=== PATIENT | female | born 1935 | race Caucasian/White ===

== ENCOUNTER → 2018-02-05 10:16 | Outpatient (CLI) | payer MEDICARE | END | disposition home or self-care (01) | LOC: D.RAD 10:16 | DX: J44.9 Chronic obstructive pulmonary disease, unspecified (principal) ==

== ENCOUNTER 2018-10-15 11:47 | Inpatient (IN) | payer MEDICARE ==
[~2018-10-15] VITALS: Ht 152.4 cm; Wt 46.7 kg
[2018-10-15 12:49] LABS: BASOPHILS 0.4 % (0-2); EOSINOPHILS 0.2 % (0-7); HEMOGLOBIN 14.1 g/dL (12-16); IMMATURE GRANULOCYTES 0.1 % (0-5); LYMPHOCYTES 11.5 % (15-50); MCH 30.5 pg (26.0-34.0); MCHC 33.6 g/dL (31.0-37.0); MCV 90.7 fL (80.0-100.0); MEAN PLATELET VOLUME 11.8 fL (7.4-10.4); MONOCYTES 7.5 % (2-11); NEUTROPHILS 80.3 % (40-80); PLATELET COUNT 236 10x3/uL (130-400); RBC 4.63 10x6/uL (4.00-5.40); WBC 10.3 10x3/uL (4.8-10.8)
[2018-10-15 13:17] LABS: ALBUMIN 3.4 g/dL (3.4-5.0); ALKALINE PHOSPHATASE 44 U/L (46-116); ALT (SGPT) 27 U/L (10-68); BILIRUBIN - TOTAL 0.72 mg/dL (0.2-1.3); CALC OSMOLALITY 288 mosm/kg (275-300); CARBON DIOXIDE 25.8 mmol/L (21.0-32.0); CHLORIDE - SERUM 108 mmol/L (98-107); CREATININE - SERUM 0.7 mg/dL (0.6-1.3); GLUCOSE 118 mg/dL (74-106); POTASSIUM - SERUM 3.5 mmol/L (3.5-5.1); PROTEIN - SERUM 7.3 g/dL (6.4-8.2); SODIUM 145 mmol/L (136-145); UREA NITROGEN 11 mg/dL (7-18); eGFR NON AFRICAN AMERICAN 84 mL/min (90-120)
--- NOTE | 2018-10-15 16:52 | MORECARE ---
CASE MANAGEMENT DISCHARGE SUMMARY PATIENT: DIANNA CRUZ UNIT: [id number] ADM DATE: 10/15/18 AGE: 83 : 34 SEX: F ROOM/BED: D.2239 AUTHOR: MIREYADOC PHYSICIAN: REFERRING PHYSICIAN: MIKAYLA DOWNING MD DATE OF SERVICE: 10/15/18 Discharge Plan Patient Name: DIANNA CRUZ Facility: [facility]:[place] : 1935 Planned Disposition: Anticipated Discharge Date: Discharge Date: Expected LOS: Initial Reviewer: [email or web address] Initial Review Date: 10/15/2018 Generated: 10/15/18 5:52 pm DCP- Discharge Planning Updated by [email or web address]: Maricel De Guzman on 10/15/18 3:[address] CM met with patient, daughter, son regarding dc needs/plans. Patient request her daughter, Sherry and son Niels answer questions. Prior to yesterday, patient was independent with dressing, bathing, cooking, house work. Lives with son. Fell X2 yesterday due to LUE, LLE sudden weakness, did not seek treatment. PCP: Dr. Robles. Pharmacy: [facility]. Patient has 3 steps w/railing entering home. DME: None. HHS: None. Uses no community resources. Emergency Contact: Sherry Calles (Dtr) [phone], Niels Cruz (Son) H [phone], C [phone]. Patient is unkempt in appearance. Denies any difficulty swallowing. Patient will benefit REHAB prior to discharge and is in agreement with this. Her Insurance is [employer] and this will require prior authorization per Rehab. Informed family of different rehab facilities and process. Patient will also benefit use of a WALKER prior to discharge. CM will follow and assist with dc needs/plans PRN. Maricel De Guzman RN CM DCPIA - Discharge Planning Initial Assessment Updated by [email or web address]: Maricel De Guzman on 10/15/18 4:47 pm * Is the patient Alert and Oriented? Yes * How many steps to enter\exit or inside your home? 3 with mcpherson * PCP Dr. Robles * [facility] * Preadmission Environment Home with Family * ADLs Independent * Equipment None * Other Equipment NA * List name and contact numbers for known caregivers / representatives who currently or will assist patient after discharge: Sherry Calles (Dtr) [phone] Nielsmonisha Calles Jr (Son) H [phone] * Verbal permission to speak to the caregivers and representatives has been obtained from the patient. Yes * Community resources currently utilized None * Please name any agencies selected above. NA * Additional services required to return to the preadmission environment? Yes * Can the patient safely return to the preadmission environment? No * Has this patient been hospitalized within the prior 30 days at any hospital? No Patient Name: DIANNA CRUZ Page [id number] at 1652 All edits/amendments must be made on the electronic document DICTATION DATE: 10/15/181651 MANAGER DATABASE ADMINISTRATION: ELIZABETH 10/15/181651 RPT#: [id number] DC DATE: STATUS: ADM IN [facility] [address] [place] [address] END OF REPORT
[2018-10-15 17:13] VITALS: BP 140/55; BMI 20.1
[2018-10-15 20:20] VITALS: BP 160/53
[2018-10-15 23:33] VITALS: BP 160/70
[2018-10-16 04:05] VITALS: BP 161/75
[2018-10-16 08:51] VITALS: BP 174/62
[2018-10-16 10:41] LABS: BASOPHILS 0.4 % (0-2); EOSINOPHILS 0.1 % (0-7); HEMATOCRIT 39.7 % (36.0-48.0); HEMOGLOBIN 13.4 g/dL (12-16); IMMATURE GRANULOCYTES 0.2 % (0-5); LYMPHOCYTES 12.1 % (15-50); MCH 30.7 pg (26.0-34.0); MCHC 33.8 g/dL (31.0-37.0); MCV 91.1 fL (80.0-100.0); MEAN PLATELET VOLUME 11.8 fL (7.4-10.4); MONOCYTES 6.2 % (2-11); PLATELET COUNT 229 10x3/uL (130-400); RBC 4.36 10x6/uL (4.00-5.40); RDW 13.8 % (11.5-14.5)
[2018-10-16 10:53] LABS: CALC OSMOLALITY 285 mosm/kg (275-300); CALCIUM 8.8 mg/dL (8.5-10.1); CARBON DIOXIDE 26.3 mmol/L (21.0-32.0); CHLORIDE - SERUM 107 mmol/L (98-107); CREATININE - SERUM 0.7 mg/dL (0.6-1.3); GLUCOSE 127 mg/dL (74-106); POTASSIUM - SERUM 3.2 mmol/L (3.5-5.1); SODIUM 142 mmol/L (136-145); eGFR NON AFRICAN AMERICAN 84 mL/min (90-120)
[2018-10-16 10:58] LABS: UREA NITROGEN 16 mg/dL (7-18)
[2018-10-16 11:30] LABS: CHOL - HDL RATIO 2.3 ratio (2.3-4.1); LDL-HDL RATIO 1.1 ratio (1.5-3.5)
[2018-10-16 13:17] VITALS: Ht 152.4 cm; Wt 46.7 kg
[2018-10-16 13:37] VITALS: BP 171/61
[2018-10-16 17:45] VITALS: BP 132/66
[2018-10-16 20:00] VITALS: BP 146/54
[2018-10-17] VITALS: BP 135/65
[2018-10-17 03:00] VITALS: BP 142/58
[2018-10-17 06:39] LABS: BASOPHILS 0.6 % (0-2); EOSINOPHILS 0.6 % (0-7); HEMATOCRIT 38.3 % (36.0-48.0); HEMOGLOBIN 12.8 g/dL (12-16); IMMATURE GRANULOCYTES 0.1 % (0-5); LYMPHOCYTES 22.3 % (15-50); MCHC 33.4 g/dL (31.0-37.0); MCV 89.7 fL (80.0-100.0); MEAN PLATELET VOLUME 11.9 fL (7.4-10.4); MONOCYTES 8.6 % (2-11); NEUTROPHILS 67.8 % (40-80); PLATELET COUNT 228 10x3/uL (130-400); RBC 4.27 10x6/uL (4.00-5.40)
[2018-10-17 06:50] LABS: CALC OSMOLALITY 283 mosm/kg (275-300); CALCIUM 8.5 mg/dL (8.5-10.1); CARBON DIOXIDE 26.7 mmol/L (21.0-32.0); CHLORIDE - SERUM 106 mmol/L (98-107); CREATININE - SERUM 0.7 mg/dL (0.6-1.3); GLUCOSE 116 mg/dL (74-106); POTASSIUM - SERUM 3.4 mmol/L (3.5-5.1); SODIUM 141 mmol/L (136-145); UREA NITROGEN 17 mg/dL (7-18); eGFR NON AFRICAN AMERICAN 84 mL/min (90-120)
[2018-10-17 08:57] VITALS: BP 146/79
[2018-10-17 12:55] VITALS: BP 138/48
[2018-10-17 14:03] LABS: APPEARANCE HAZY (CLEAR); BILIRUBIN NEGATIVE (NEGATIVE); COLOR DK YELLOW (YELLOW); GLUCOSE NEGATIVE (NEGATIVE); KETONE NEGATIVE (NEGATIVE); NITRITE NEGATIVE (NEGATIVE); PROTEIN 1+ mg/dL (NEGATIVE); SPECIFIC GRAVITY 1.025 (1.005-1.020); UROBILINOGEN NORMAL (NORMAL)
[2018-10-17 14:04] LABS: BACTERIA MANY /hpf (NONE SEEN); CALCIUM OXALATE CRYSTALS 0-5 /hpf (NONE SEEN); EPITHELIAL CELLS 0-5 /hpf (0-5); MUCUS <1+ /lpf (NONE SEEN); RED CELLS - URINE 0-5 /hpf (0-5); WHITE CELLS - URINE 0-5 /hpf (0-5)
[2018-10-17 20:00] VITALS: BP 135/61
[2018-10-18] VITALS: BP 138/59
[2018-10-18 03:00] VITALS: BP 130/48
[2018-10-18 06:36] LABS: BASOPHILS 0.4 % (0-2); HEMATOCRIT 38.2 % (36.0-48.0); HEMOGLOBIN 12.4 g/dL (12-16); IMMATURE GRANULOCYTES 0.3 % (0-5); LYMPHOCYTES 20.3 % (15-50); MCH 29.7 pg (26.0-34.0); MCHC 32.5 g/dL (31.0-37.0); MCV 91.4 fL (80.0-100.0); MEAN PLATELET VOLUME 11.8 fL (7.4-10.4); PLATELET COUNT 243 10x3/uL (130-400); RBC 4.18 10x6/uL (4.00-5.40); RDW 14.1 % (11.5-14.5); WBC 7.8 10x3/uL (4.8-10.8)
[2018-10-18 06:52] LABS: CALC OSMOLALITY 289 mosm/kg (275-300); CALCIUM 8.6 mg/dL (8.5-10.1); CARBON DIOXIDE 27.7 mmol/L (21.0-32.0); CHLORIDE - SERUM 108 mmol/L (98-107); CREATININE - SERUM 0.6 mg/dL (0.6-1.3); GLUCOSE 119 mg/dL (74-106); POTASSIUM - SERUM 3.3 mmol/L (3.5-5.1); SODIUM 144 mmol/L (136-145); UREA NITROGEN 17 mg/dL (7-18); eGFR NON AFRICAN AMERICAN > 90 mL/min (90-120)
[2018-10-18 09:21] VITALS: BP 118/61
--- NOTE | 2018-10-18 15:19 | MORECARE ---
CASE MANAGEMENT DISCHARGE SUMMARY PATIENT: DIANNA CRUZ UNIT: [id number] ADM DATE: 10/15/18 AGE: 83 : 34 SEX: F ROOM/BED: D.2239 AUTHOR: MIREYA,DOC PHYSICIAN: REFERRING PHYSICIAN: MIKAYLA DOWNING MD DATE OF SERVICE: 10/18/18 Discharge Plan Patient Name: DIANNA CRUZ Facility: [facility]:[place] : 1935 Planned Disposition: Anticipated Discharge Date: Discharge Date: Expected LOS: Initial Reviewer: [email or web address] Initial Review Date: 10/15/2018 Generated: 10/18/18 4:19 pm Comments DCP- Discharge Planning Updated by [email or web address]: Carmita Villegas on 10/18/18 2:[address] [facility] AC[facility] REHAB REVIEWED PATIENT FOR ACUTE REHAB STAY 10/16/18. THE PATIENT HAS [employer] MANAGED CARE WHICH REQUIRES A PRECERT. PATIENT HAS QUALIFYING DIAGNOSIS. PHYSICAL THERAPY ASSESSMENT DONE 10/16/18 AND SHE CONTINUES THERAPY. OT EVALUATION DONE 10/17/18. REHAB TO F/U WITH INSURER TO OBTAIN PREAUTH. DCP- Discharge Planning Updated by [id number]: Maricel De Guzman on 10/15/18 3:[address] CM met with patient, daughter, son regarding dc needs/plans. Patient request her daughter, Sherry and son Niels answer questions. Prior to yesterday, patient was independent with dressing, bathing, cooking, house work. Lives with son. Fell X2 yesterday due to LUE, LLE sudden weakness, did not seek treatment. PCP: Dr. Robles. Pharmacy: [facility]. Patient has 3 steps w/railing entering home. DME: None. HHS: None. Uses no community resources. Emergency Contact: Sherry Calles (Dtr) [phone], Niels Jr Daniel (Son) H [phone], C [phone]. Patient is unkempt in appearance. Denies any difficulty swallowing. Patient will benefit REHAB prior to discharge and is in agreement with this. Her Insurance is [employer] and this will require prior authorization per Rehab. Informed family of different rehab facilities and process. Patient will also benefit use of a WALKER prior to discharge. CM will follow and assist with dc needs/plans PRN. Maricel De Guzman RN CM DCPIA - Discharge Planning Initial Assessment Updated by [id number]: Maricel De Guzman on 10/15/18 4:47 pm * Is the patient Alert and Oriented? Yes * How many steps to enter\exit or inside your home? 3 with mcpherson * PCP Dr. Robles * [facility] * Preadmission Environment Home with Family * ADLs Independent * Equipment None * Other Equipment NA * List name and contact numbers for known caregivers / representatives who currently or will assist patient after discharge: Sherry Calles (Dtr) [phone] Niels Calles Jr (Son) H [phone] * Verbal permission to speak to the caregivers and representatives has been obtained from the patient. Yes * Community resources currently utilized None * Please name any agencies selected above. NA * Additional services required to return to the preadmission environment? Yes * Can the patient safely return to the preadmission environment? No * Has this patient been hospitalized within the prior 30 days at any hospital? No Last DP export: 10/15/18 3:52 p Patient Name: DIANNA CRZU Page [id number] at 1519 All edits/amendments must be made on the electronic document DICTATION DATE: 10/18/181518 MEDICAL TRANSCRIPTION: ELIZABETH 10/18/181518 RPT#: [id number] DC DATE: STATUS: ADM IN [facility] [address] [place] [address] END OF REPORT
[2018-10-18 16:56] VITALS: BP 173/63
[2018-10-18 19:00] VITALS: BP 156/77
[2018-10-19] VITALS: BP 148/69
[2018-10-19 03:00] VITALS: BP 151/68
[2018-10-19 06:02] LABS: BASOPHILS 0.4 % (0-2); HEMATOCRIT 36.8 % (36.0-48.0); HEMOGLOBIN 11.9 g/dL (12-16); IMMATURE GRANULOCYTES 0.1 % (0-5); LYMPHOCYTES 22.4 % (15-50); MCH 29.5 pg (26.0-34.0); MCHC 32.3 g/dL (31.0-37.0); MCV 91.1 fL (80.0-100.0); MEAN PLATELET VOLUME 11.5 fL (7.4-10.4); MONOCYTES 10.3 % (2-11); NEUTROPHILS 65.8 % (40-80); PLATELET COUNT 235 10x3/uL (130-400); RBC 4.04 10x6/uL (4.00-5.40); RDW 13.9 % (11.5-14.5); WBC 6.9 10x3/uL (4.8-10.8)
[2018-10-19 06:17] LABS: CALC OSMOLALITY 290 mosm/kg (275-300); CALCIUM 8.5 mg/dL (8.5-10.1); CARBON DIOXIDE 28.3 mmol/L (21.0-32.0); CHLORIDE - SERUM 109 mmol/L (98-107); CREATININE - SERUM 0.6 mg/dL (0.6-1.3); GLUCOSE 118 mg/dL (74-106); POTASSIUM - SERUM 3.5 mmol/L (3.5-5.1); SODIUM 145 mmol/L (136-145); UREA NITROGEN 15 mg/dL (7-18); eGFR NON AFRICAN AMERICAN > 90 mL/min (90-120)
[2018-10-19 08:25] VITALS: BP 156/66
[2018-10-19 12:26] VITALS: BP 145/55
[2018-10-19 17:23] VITALS: BP 152/57
[2018-10-19 20:31] VITALS: BP 154/52
[2018-10-20 01:15] VITALS: BP 144/55
[2018-10-20 04:47] VITALS: BP 143/71
[2018-10-20 07:12] LABS: BASOPHILS 0.8 % (0-2); EOSINOPHILS 1.4 % (0-7); HEMATOCRIT 36.7 % (36.0-48.0); HEMOGLOBIN 12.3 g/dL (12-16); IMMATURE GRANULOCYTES 0.1 % (0-5); LYMPHOCYTES 25.9 % (15-50); MCH 30.5 pg (26.0-34.0); MCHC 33.5 g/dL (31.0-37.0); MCV 91.1 fL (80.0-100.0); MEAN PLATELET VOLUME 11.5 fL (7.4-10.4); MONOCYTES 7.9 % (2-11); NEUTROPHILS 63.9 % (40-80); PLATELET COUNT 242 10x3/uL (130-400); RBC 4.03 10x6/uL (4.00-5.40); RDW 13.7 % (11.5-14.5); WBC 7.1 10x3/uL (4.8-10.8)
[2018-10-20 07:27] LABS: CALC OSMOLALITY 283 mosm/kg (275-300); CALCIUM 8.4 mg/dL (8.5-10.1); CARBON DIOXIDE 26.2 mmol/L (21.0-32.0); CHLORIDE - SERUM 106 mmol/L (98-107); CREATININE - SERUM 0.6 mg/dL (0.6-1.3); GLUCOSE 117 mg/dL (74-106); POTASSIUM - SERUM 3.2 mmol/L (3.5-5.1); SODIUM 142 mmol/L (136-145); UREA NITROGEN 13 mg/dL (7-18); eGFR NON AFRICAN AMERICAN > 90 mL/min (90-120)
[2018-10-20 08:59] VITALS: BP 129/69
--- NOTE | 2018-10-20 10:23 | EC ---
PATIENT:DIANNA CRUZ DATE OF SERVICE: 10/15/18 SEX: F MEDICAL RECORD: [id number] DATE OF : 33 LOCATION:D.MS [address] AGE OF PATIENT: 83 ADMISSION DATE: 10/15/18 REFERRING PHYSICIAN: INTERPRETING PHYSICIAN: VAISHALI CAMARILLO MD ECHOCARDIOGRAM REPORT ECHO CHARGES 4 ECHO COMPLETE Date: 10/17/18 CLINICAL DIAGNOSIS: MURMUR ECHOCARDIOGRAPHIC MEASUREMENTS (adult normal given) AC root (d.<3.7cm) 2.9 cm LV Septum d (<1.2 cm> 1.7 cm Valve Excursion 0.5 cm LV Septum (systole) 1.8 cm Left Atria (s.<4.0cm> 2.4 cm LVPW d(<1.2cm) 0.7 cm RV (d.<2.3cm) 2.0 cm LVPW (sytole) 0.9 cm LV diastole(<5.6CM) 4.0 cm MV E-F(>70mm/sec) cm LV systole 3.5 cm LVOT Diameter 1.5 cm MV exc.(>10mm) cm Est.ejection fraction (50-75%) % DOPPLER: LVIT cm/sec A 95 cm/sec E 55 cm/sec LA cm/sec RVSP 22.0 mmHg LVOT 107 cm/sec AOP1/2T m/s Asc. Ao 313 cm/sec RVOT 104 cm/sec RA cm/sec PA 105 cm/sec AV Gradient Peak 39.2 mmHg AV Mean 31.5 mmHg AV Area 0.6 cm MV Gradient Peak 6.6 mmHg MV Mean 2.0 mmHg MV Area cm COMMENTS: Registered Safety Engineer: Carmine MERCADO Terrazzo Worker: 1 Dr. Cam[place]illo TAPE# PACS Pericardial Effusion N DATE OF SERVICE: 10/18/2018 PROCEDURE: Echocardiogram. FINDINGS: 1. Left ventricular chamber size is within normal limits. Left ventricular systolic function is normal. Overall ejection fraction estimated at 60%. 2. Left atrium, right atrium, and right ventricle chamber sizes are within normal limits. 3. Valvular structures have normal structure and motion. ECHOCARDIOGRAM REPORT [id number] DIANNA CRUZ 4. Doppler interrogation reveals mild aortic insufficiency. No other valvular insufficiency or stenosis and pulmonary systolic pressure is estimated at 22 mmHg. 5. No evidence of pericardial effusion or left ventricular thrombus. TRANSINT:[id number] Voice Confirmation ID: [id number] DOCUMENT ID: [id number] VAISHALI CAMARILLO MD at 1023 CC: [id number] DICTATION DATE: 10/18/18 1200 BULL CHAIN OPERATOR: 10/18/18 1344 ADM IN [facility] [address] [place] [address]
[2018-10-20 12:16] VITALS: BP 140/59
--- NOTE | 2018-10-20 12:25 | MORECARE ---
CASE MANAGEMENT DISCHARGE SUMMARY PATIENT: DIANNA CRUZ UNIT: [id number] ADM DATE: 10/15/18 AGE: 83 : 34 SEX: F ROOM/BED: D.2239 AUTHOR: MIREYA,DOC PHYSICIAN: REFERRING PHYSICIAN: MIKAYLA DOWNING MD DATE OF SERVICE: 10/20/18 Discharge Plan Patient Name: DIANNA CRUZ Facility: [facility]:[place] : 1935 Planned Disposition: Anticipated Discharge Date: Discharge Date: Expected LOS: Initial Reviewer: [email or web address] Initial Review Date: 10/15/2018 Generated: 10/20/18 1:25 pm DCP- Discharge Planning Updated by [email or web address]: Carmita Villegas on 10/18/18 2:[address] [facility] ACUTE REHAB REVIEWED PATIENT FOR ACUTE REHAB STAY 10/16/18. THE PATIENT HAS [employer] MANAGED CARE WHICH REQUIRES A PRECERT. PATIENT HAS QUALIFYING DIAGNOSIS. PHYSICAL THERAPY ASSESSMENT DONE 10/16/18 AND SHE CONTINUES THERAPY. OT EVALUATION DONE 10/17/18. REHAB TO F/U WITH INSURER TO OBTAIN PREAUTH. DCP- Discharge Planning Updated by [id number]: Maricel De Guzman on 10/15/18 3:[address] CM met with patient, daughter, son regarding dc needs/plans. Patient request her daughter, Sherry and son Niels answer questions. Prior to yesterday, patient was independent with dressing, bathing, cooking, house work. Lives with son. Fell X2 yesterday due to LUE, LLE sudden weakness, did not seek treatment. PCP: Dr. Robles. Pharmacy: [facility]. Patient has 3 steps w/railing entering home. DME: None. HHS: None. Uses no community resources. Emergency Contact: Sherry Calles (Dtr) [phone], Niels Jr Daniel (Son) H [phone], C [phone]. Patient is unkempt in appearance. Denies any difficulty swallowing. Patient will benefit REHAB prior to discharge and is in agreement with this. Her Insurance is [employer] and this will require prior authorization per Rehab. Informed family of different rehab facilities and process. Patient will also benefit use of a WALKER prior to discharge. CM will follow and assist with dc needs/plans PRN. Maricel De Guzman RN CM DCPIA - Discharge Planning Initial Assessment Updated by [email or web address]: Maricel De Guzman on 10/15/18 4:47 pm * Is the patient Alert and Oriented? Yes * How many steps to enter\exit or inside your home? 3 with mcpherson * PCP Dr. Robles * [facility] * Preadmission Environment Home with Family * ADLs Independent * Equipment None * Other Equipment NA * List name and contact numbers for known caregivers / representatives who currently or will assist patient after discharge: Sherry Calles (Dtr) [phone] Niels Calles Jr (Son) H [phone] * Verbal permission to speak to the caregivers and representatives has been obtained from the patient. Yes * Community resources currently utilized None * Please name any agencies selected above. NA * Additional services required to return to the preadmission environment? Yes * Can the patient safely return to the preadmission environment? No * Has this patient been hospitalized within the prior 30 days at any hospital? No External Providers External Provider: [facility] Next Contact Date: Service Request Date: Service Type: Resolution: Reviewer: Comments: Last DP export: 10/18/18 2:19 p Patient Name: DIANNA CRUZ Page [phone] at 1225 All edits/amendments must be made on the electronic document DICTATION DATE: 10/20/18 1225 RAIL CAR OPERATOR: ELIZABETH 10/20/18 1225 RPT#: [id number] DC DATE: STATUS: ADM IN [facility] [address] [place] [address] END OF REPORT
--- NOTE | 2018-10-20 12:41 | MORECARE ---
CASE MANAGEMENT DISCHARGE SUMMARY PATIENT: DIANNA CRUZ UNIT: [id number] ADM DATE: 10/15/18 AGE: 83 : 34 SEX: F ROOM/BED: D.2239 AUTHOR: MIREYA,DOC PHYSICIAN: REFERRING PHYSICIAN: MIKAYLA DOWNING MD DATE OF SERVICE: 10/20/18 Discharge Plan Patient Name: DIANNA CRUZ Facility: [facility]:[place] : 1935 Planned Disposition: Anticipated Discharge Date: Discharge Date: Expected LOS: Initial Reviewer: [email or web address] Initial Review Date: 10/15/2018 Generated: 10/20/18 1:41 pm Comments DCP- Discharge Planning Updated by [email or web address]: Colette Franco on 10/20/18 11:[address] Received a call from Mary with inpatient rehab that her insurance has denied inpatient rehab. I spoke with the patient and she does not want to appeal or go to a skilled facility. Patient states that she wants to go home. Patient does consent to home health, but states her daughter (Colette) knows the one to chose. I called Colette and she chose [facility]. I called [facility] and spoke with Atif and clinical faxed. I informed Atif that the daughter requests the nurse Aimee. I informed her daughter that I anticipate discharge today. CM will continue to follow and assist with discharge planning/needs. DCP- Discharge Planning Updated by [email or web address]: Carmita Villegas on 10/18/18 2:[address] [facility] AC[facility] REHAB REVIEWED PATIENT FOR ACUTE REHAB STAY 10/16/18. THE PATIENT HAS [employer] MANAGED CARE WHICH REQUIRES A PRECERT. PATIENT HAS QUALIFYING DIAGNOSIS. PHYSICAL THERAPY ASSESSMENT DONE 10/16/18 AND SHE CONTINUES THERAPY. OT EVALUATION DONE 10/17/18. REHAB TO F/U WITH INSURER TO OBTAIN PREAUTH. DCP- Discharge Planning Updated by [id number]: Maricel De Guzman on 10/15/18 3:[address] CM met with patient, daughter, son regarding dc needs/plans. Patient request her daughter, Sherry and son Niels answer questions. Prior to yesterday, patient was independent with dressing, bathing, cooking, house work. Lives with son. Fell X2 yesterday due to LUE, LLE sudden weakness, did not seek treatment. PCP: Dr. Robles. Pharmacy: [facility]. Patient has 3 steps w/railing entering home. DME: None. HHS: None. Uses no community resources. Emergency Contact: Sherry Calles (Dtr) [phone], Niels CruzJr (Son) H [phone], C [phone]. Patient is unkempt in appearance. Denies any difficulty swallowing. Patient will benefit REHAB prior to discharge and is in agreement with this. Her Insurance is [employer] and this will require prior authorization per Rehab. Informed family of different rehab facilities and process. Patient will also benefit use of a WALKER prior to discharge. CM will follow and assist with dc needs/plans PRN. Maricel De Guzman RN, CM DCPIA - Discharge Planning Initial Assessment Updated by [email or web address]: Maricel De Guzman on 10/15/18 4:47 pm * Is the patient Alert and Oriented? Yes * How many steps to enter\exit or inside your home? 3 with mcpherson * PCP Dr. Robles * [facility] * Preadmission Environment Home with Family * ADLs Independent * Equipment None * Other Equipment NA * List name and contact numbers for known caregivers / representatives who currently or will assist patient after discharge: Sherry Calles (Dtr) [phone] Niels Calles (Son) H [phone] * Verbal permission to speak to the caregivers and representatives has been obtained from the patient. Yes * Community resources currently utilized None * Please name any agencies selected above. NA * Additional services required to return to the preadmission environment? Yes * Can the patient safely return to the preadmission environment? No * Has this patient been hospitalized within the prior 30 days at any hospital? No Last DP export: 10/20/18 11:25 a Patient Name: DIANNA CRUZ Page 60811 at 1241 All edits/amendments must be made on the electronic document DICTATION DATE: 10/20/18 1240 TAPE CUTTING MACHINE OPERATOR: ELIZABETH 10/20/18 1240 RPT#: [id number] MD DATE: STATUS: ADM IN [facility] [address] [place] [address] END OF REPORT
--- NOTE | 2018-10-20 12:48 | MORECARE ---
CASE MANAGEMENT DISCHARGE SUMMARY PATIENT: DIANNA CRUZ UNIT: [id number] ADM DATE: 10/15/18 AGE: 83 : 34 SEX: F ROOM/BED: D.2239 AUTHOR: MIREYA,DOC PHYSICIAN: REFERRING PHYSICIAN: MIKAYLA DOWNING MD DATE OF SERVICE: 10/20/18 Discharge Plan Patient Name: DIANNA CRUZ Facility: [facility]:[place] : 1935 Planned Disposition: Anticipated Discharge Date: Discharge Date: Expected LOS: Initial Reviewer: [email or web address] Initial Review Date: 10/15/2018 Generated: 10/20/18 1:48 pm Comments DCP- Discharge Planning Updated by [email or web address]: Colette Franco on 10/20/18 11:[address] Received a call from Mary with inpatient rehab that her insurance has denied inpatient rehab. I spoke with the patient and she does not want to appeal or go to a skilled facility. Patient states that she wants to go home. Patient does consent to home health, but states her daughter (Colette) knows the one to chose. I called Colette and she chose [facility]. I called [facility] and spoke with Atif and clinical faxed. I informed Atif that the daughter requests the nurse Aimee. I informed her daughter that I anticipate discharge today. CM will continue to follow and assist with discharge planning/needs. DCP- Discharge Planning Updated by [email or web address]: Carmita Villegas on 10/18/18 2:[address] [facility] ACUTE REHAB REVIEWED PATIENT FOR ACUTE REHAB STAY 10/16/18. THE PATIENT HAS [employer] MANAGED CARE WHICH REQUIRES A PRECERT. PATIENT HAS QUALIFYING DIAGNOSIS. PHYSICAL THERAPY ASSESSMENT DONE 10/16/18 AND SHE CONTINUES THERAPY. OT EVALUATION DONE 10/17/18. REHAB TO F/U WITH INSURER TO OBTAIN PREAUTH. DCP- Discharge Planning Updated by [id number]: Maricel De Guzman on 10/15/18 3:[address] CM met with patient, daughter, son regarding dc needs/plans. Patient request her daughter, Sherry and son Niels answer questions. Prior to yesterday, patient was independent with dressing, bathing, cooking, house work. Lives with son. Fell X2 yesterday due to LUE, LLE sudden weakness, did not seek treatment. PCP: Dr. Robles. Pharmacy: [facility]. Patient has 3 steps w/railing entering home. DME: None. HHS: None. Uses no community resources. Emergency Contact: Sherry Calles (Dtr) [phone], Niels Jr Daniel (Son) H [phone], C [phone]. Patient is unkempt in appearance. Denies any difficulty swallowing. Patient will benefit REHAB prior to discharge and is in agreement with this. Her Insurance is [employer] and this will require prior authorization per Rehab. Informed family of different rehab facilities and process. Patient will also benefit use of a WALKER prior to discharge. CM will follow and assist with dc needs/plans PRN. Maricel De Guzman RN, CM DCPIA - Discharge Planning Initial Assessment Updated by [email or web address]: Maricel De Guzman on 10/15/18 4:47 pm * Is the patient Alert and Oriented? Yes * How many steps to enter\exit or inside your home? 3 with mcpherson * PCP Dr. Robles * [facility] * Preadmission Environment Home with Family * ADLs Independent * Equipment None * Other Equipment NA * List name and contact numbers for known caregivers / representatives who currently or will assist patient after discharge: Sherry Calles (Dtr) [phone] Niels Calles (Son) H [phone] * Verbal permission to speak to the caregivers and representatives has been obtained from the patient. Yes * Community resources currently utilized None * Please name any agencies selected above. NA * Additional services required to return to the preadmission environment? Yes * Can the patient safely return to the preadmission environment? No * Has this patient been hospitalized within the prior 30 days at any hospital? No External Providers [facility] Next Contact Date: Service Request Date: Service Type: Resolution: Reviewer: Comments: External Provider: [facility] Next Contact Date: Service Request Date: Service Type: Resolution: Reviewer: Comments: Last DP export: 10/20/18 11:41 a Patient Name: SHELBY CRUZE Page 68167 at 1248 All edits/amendments must be made on the electronic document DICTATION DATE: 10/20/181247 DENTAL BILLING SPECIALIST: ELIZABETH 10/20/181247 RPT#: [id number] DC DATE: STATUS: ADM IN [facility] [address] [place] [address] END OF REPORT
[2018-10-20] MEDS ORDERED: ASPIRIN81 MG PO (13:04)
[2018-10-20] MEDS ORDERED: LISINOPRIL10 MG PO (13:04)
[2018-10-20] MEDS ORDERED: LEVAQUIN750 MG PO (13:05)
[2018-10-20] MEDS ORDERED: Nicoderm [PBKC] TRANSDERM (13:05)
--- NOTE | 2018-10-20 14:34 | MORECARE ---
CASE MANAGEMENT DISCHARGE SUMMARY PATIENT: DIANNA CRUZ UNIT: [id number] ADM DATE: 10/15/18 AGE: 83 : 34 SEX: F ROOM/BED: D.2239 AUTHOR: MIREYA,DOC PHYSICIAN: REFERRING PHYSICIAN: MIKAYLA DOWNING MD DATE OF SERVICE: 10/20/18 Discharge Plan Patient Name: DIANNA CRUZ Facility: [facility]:[place] : 1935 Planned Disposition: Anticipated Discharge Date: Discharge Date: Expected LOS: Initial Reviewer: [email or web address] Initial Review Date: 10/15/2018 Generated: 10/20/18 3:34 pm Comments DCP- Discharge Planning Updated by [email or web address]: Colette Franco on 10/20/18 1:[address] Patient requesting a walker. I called [facility], they are not in network with insurance. I called [facility]. They state they will deliver to the hospital. Clinical faxed. She will go home today with [facility] home health services. DCP- Discharge Planning Updated by [email or web address]: Colette Franco on 10/20/18 11:[address] Received a call from Mary with inpatient rehab that her insurance has denied inpatient rehab. I spoke with the patient and she does not want to appeal or go to a skilled facility. Patient states that she wants to go home. Patient does consent to home health, but states her daughter (Colette) knows the one to chose. I called Colette and she chose [facility]. I called [facility] and spoke with Atif and clinical faxed. I informed Atif that the daughter requests the nurse Aimee. I informed her daughter that I anticipate discharge today. CM will continue to follow and assist with discharge planning/needs. DCP- Discharge Planning Updated by [email or web address]: Carmita Villegas on 10/18/18 2:[address] [facility] RE[facility] REVIEWED PATIENT FOR ACUTE REHAB STAY 10/16/18. THE PATIENT HAS [employer] MANAGED CARE WHICH REQUIRES A PRECERT. PATIENT HAS QUALIFYING DIAGNOSIS. PHYSICAL THERAPY ASSESSMENT DONE 10/16/18 AND SHE CONTINUES THERAPY. OT EVALUATION DONE 10/17/18. REHAB TO F/U WITH INSURER TO OBTAIN PREAUTH. DCP- Discharge Planning Updated by [email or web address]: Maricel De Guzman on 10/15/18 3:[address] CM met with patient, daughter, son regarding dc needs/plans. Patient request her daughter, Sherry and son Niels answer questions. Prior to yesterday, patient was independent with dressing, bathing, cooking, house work. Lives with son. Fell X2 yesterday due to LUE, LLE sudden weakness, did not seek treatment. PCP: Dr. Robles. Pharmacy: [facility]. Patient has 3 steps w/railing entering home. DME: None. HHS: None. Uses no community resources. Emergency Contact: Sherry Marli (Dtr) [phone], Nielsmonisha Cruz Jr (Son) H [phone], C [phone]. Patient is unkempt in appearance. Denies any difficulty swallowing. Patient will benefit REHAB prior to discharge and is in agreement with this. Her Insurance is [employer] and this will require prior authorization per Rehab. Informed family of different rehab facilities and process. Patient will also benefit use of a WALKER prior to discharge. CM will follow and assist with dc needs/plans PRN. Maricel De Guzman RN CM DCPIA - Discharge Planning Initial Assessment Updated by [email or web address]: Maricel De Guzman on 10/15/18 4:47 pm * Is the patient Alert and Oriented? Yes * How many steps to enter\exit or inside your home? 3 with mcpherson * PCP Dr. Robles * Pharmacy [facility] * Preadmission Environment Home with Family * ADLs Independent * Equipment None * Other Equipment NA * List name and contact numbers for known caregivers / representatives who currently or will assist patient after discharge: Sherry Calles (Dtr) [phone] Niels Calles Jr (Son) [phone] * Verbal permission to speak to the caregivers and representatives has been obtained from the patient. Yes * Community resources currently utilized None * Please name any agencies selected above. NA * Additional services required to return to the preadmission environment? Yes * Can the patient safely return to the preadmission environment? No * Has this patient been hospitalized within the prior 30 days at any hospital? No Last DP export: 10/20/18 11:48 a Patient Name: DIANNA CRUZ Page [id number] at 1434 All edits/amendments must be made on the electronic document DICTATION DATE: 10/20/181433 PRECAST CONCRETE IRONWORKER: ELIZABETH 10/20/181433 RPT#: [id number] DC DATE: STATUS: ADM IN [facility] [address] [place] [address] END OF REPORT
--- NOTE | 2018-10-20 14:49 | MORECARE ---
CASE MANAGEMENT DISCHARGE SUMMARY PATIENT: DIANNA CRUZ UNIT: [id number] ADM DATE: 10/15/18 AGE: 83 : 34 SEX: F ROOM/BED: D.2239 AUTHOR: MIREYA,DOC PHYSICIAN: REFERRING PHYSICIAN: MIKAYLA DOWNING MD DATE OF SERVICE: 10/20/18 Discharge Plan Patient Name: DIANNA CRUZ Facility: [facility]:[place] : 1935 Planned Disposition: Anticipated Discharge Date: Discharge Date: Expected LOS: Initial Reviewer: [email or web address] Initial Review Date: 10/15/2018 Generated: 10/20/18 3:49 pm Comments DCP- Discharge Planning Updated by [email or web address]: Colette Franco on 10/20/18 1:[address] Spoke with Brian at [facility] and confirmed they will see her on discharge for PT/OT/med box management/nursing O&A. CM will continue to follow and assist with discharge planning/needs. DCP- Discharge Planning Updated by [email or web address]: Colette Franco on 10/20/18 1:[address] Patient requesting a walker. I called [facility], they are not in network with insurance. I called [facility]. They state they will deliver to the hospital. Clinical faxed. She will go home today with [facility] home health services. DCP- Discharge Planning Updated by [email or web address]: Colette Franco on 10/20/18 11:[address] Received a call from Mary with inpatient rehab that her insurance has denied inpatient rehab. I spoke with the patient and she does not want to appeal or go to a skilled facility. Patient states that she wants to go home. Patient does consent to home health, but states her daughter (Colette) knows the one to chose. I called Colette and she chose [facility]. I called [facility] and spoke with Atif and clinical faxed. I informed Atif that the daughter requests the nurse Aimee. I informed her daughter that I anticipate discharge today. CM will continue to follow and assist with discharge planning/needs. DCP- Discharge Planning Updated by [email or web address]: Carmita Villegas on 10/18/18 2:[address] [facility] ACUTE REH[facility] REVIEWED PATIENT FOR ACUTE REHAB STAY 10/16/18. THE PATIENT HAS [employer] MANAGED CARE WHICH REQUIRES A PRECERT. PATIENT HAS QUALIFYING DIAGNOSIS. PHYSICAL THERAPY ASSESSMENT DONE 10/16/18 AND SHE CONTINUES THERAPY. OT EVALUATION DONE 10/17/18. REHAB TO F/U WITH INSURER TO OBTAIN PREAUTH. DCP- Discharge Planning Updated by [email or web address]: Maricel Gab on 10/15/18 3:[address] CM met with patient, daughter, son regarding dc needs/plans. Patient request her daughter, Sherry and son Niels answer questions. Prior to yesterday, patient was independent with dressing, bathing, cooking, house work. Lives with son. Fell X2 yesterday due to LUE, LLE sudden weakness, did not seek treatment. PCP: Dr. Robles. Pharmacy: [facility]. Patient has 3 steps w/railing entering home. DME: None. HHS: None. Uses no community resources. Emergency Contact: Sherry Calles (Dtr) [phone], Niels Cruz Jr (Son) [phone], C [phone]. Patient is unkempt in appearance. Denies any difficulty swallowing. Patient will benefit REHAB prior to discharge and is in agreement with this. Her Insurance is [employer] and this will require prior authorization per Rehab. Informed family of different rehab facilities and process. Patient will also benefit use of a WALKER prior to discharge. CM will follow and assist with dc needs/plans PRN. Maricel De Guzman RN CM DCPIA - Discharge Planning Initial Assessment Updated by [email or web address]: Maricel Gab on 10/15/18 4:47 pm * Is the patient Alert and Oriented? Yes * How many steps to enter\exit or inside your home? 3 with mcpherson * PCP Dr. Robles * Pharmacy [facility] * Preadmission Environment Home with Family * ADLs Independent * Equipment None * Other Equipment NA * List name and contact numbers for known caregivers / representatives who currently or will assist patient after discharge: Sherry Calles (Dtr) [phone] Niels Calles Jr (Son) H [phone] * Verbal permission to speak to the caregivers and representatives has been obtained from the patient. Yes * Community resources currently utilized None * Please name any agencies selected above. NA * Additional services required to return to the preadmission environment? Yes * Can the patient safely return to the preadmission environment? No * Has this patient been hospitalized within the prior 30 days at any hospital? No Last DP export: 10/20/18 1:34 p Patient Name: DIANNA CRUZ Page [id number] at 1449 All edits/amendments must be made on the electronic document DICTATION DATE: 10/20/181447 SUPERVISOR BEET END: DM 10/20/181447 RPT#: [id number] DC DATE: STATUS: ADM IN [facility] [address] [place] [address] END OF REPORT
--- NOTE | 2018-10-22 11:09 | MORECARE ---
CASE MANAGEMENT DISCHARGE SUMMARY PATIENT: DIANNA CRUZ UNIT: [id number] ADM DATE: 10/15/18 AGE: 83 : 34 SEX: F ROOM/BED: D.2239 AUTHOR: MIREYA,DOC PHYSICIAN: REFERRING PHYSICIAN: MIKAYLA DOWNING MD DATE OF SERVICE: 10/22/18 Discharge Plan Patient Name: DIANNA CRUZ Facility: [facility]:[place] : 1935 Planned Disposition: Anticipated Discharge Date: Discharge Date: 10/20/2018 Expected LOS: 0 Initial Reviewer: [email or web address] Initial Review Date: 10/15/2018 Generated: 10/22/18 12:09 pm Comments DCP- Discharge Planning Updated by [email or web address]: Colette Franco on 10/20/18 1:[address] Spoke with Brian at [facility] and confirmed they will see her on discharge for PT/OT/med box management/nursing O&A. CM will continue to follow and assist with discharge planning/needs. DCP- Discharge Planning Updated by [id number]: Colette Franco on 10/20/18 1:[address] Patient requesting a walker. I called [facility], they are not in network with insurance. I called [facility]. They state they will deliver to the hospital. Clinical faxed. She will go home today with [facility] home health services. DCP- Discharge Planning Updated by [email or web address]: Colette Franco on 10/20/18 11:[address] Received a call from Mary with inpatient rehab that her insurance has denied inpatient rehab. I spoke with the patient and she does not want to appeal or go to a skilled facility. Patient states that she wants to go home. Patient does consent to home health, but states her daughter (Colette) knows the one to chose. I called Colette and she chose [facility]. I called [facility] and spoke with Atif and clinical faxed. I informed Atif that the daughter requests the nurse Aimee. I informed her daughter that I anticipate discharge today. CM will continue to follow and assist with discharge planning/needs. DCP- Discharge Planning Updated by [id number]: Carmita Villegas on 10/18/18 2:[address] [facility] REHAB REVIEWED PATIENT FOR ACUTE REHAB STAY 10/16/18. THE PATIENT HAS [employer] MANAGED CARE WHICH REQUIRES A PRECERT. PATIENT HAS QUALIFYING DIAGNOSIS. PHYSICAL THERAPY ASSESSMENT DONE 10/16/18 AND SHE CONTINUES THERAPY. OT EVALUATION DONE 10/17/18. REHAB TO F/U WITH INSURER TO OBTAIN PREAUTH. DCP- Discharge Planning Updated by [id number]: Maricel Gab on 10/15/18 3:[address] CM met with patient, daughter, son regarding dc needs/plans. Patient request her daughter, Sherry and son Niels answer questions. Prior to yesterday, patient was independent with dressing, bathing, cooking, house work. Lives with son. Fell X2 yesterday due to LUE, LLE sudden weakness, did not seek treatment. PCP: Dr. Robles. Pharmacy: [facility]. Patient has 3 steps w/railing entering home. DME: None. HHS: None. Uses no community resources. Emergency Contact: Sherry Calles (Dtr) [phone], Niels Cruz Jr (Son) H [phone], C [phone]. Patient is unkempt in appearance. Denies any difficulty swallowing. Patient will benefit REHAB prior to discharge and is in agreement with this. Her Insurance is [employer] and this will require prior authorization per Rehab. Informed family of different rehab facilities and process. Patient will also benefit use of a WALKER prior to discharge. CM will follow and assist with dc needs/plans PRN. Maricel De Guzman RN CM DCPIA - Discharge Planning Initial Assessment Updated by [email or web address]: Maricel De Guzman on 10/15/18 4:47 pm * Is the patient Alert and Oriented? Yes * How many steps to enter\exit or inside your home? 3 with mcpherson * PCP Dr. Robles * Pharmacy [facility] * Preadmission Environment Home with Family * ADLs Independent * Equipment None * Other Equipment NA * List name and contact numbers for known caregivers / representatives who currently or will assist patient after discharge: Sherry Calles (Dtr) [phone] Niels Calles Jr (Son) H [phone] * Verbal permission to speak to the caregivers and representatives has been obtained from the patient. Yes * Community resources currently utilized None * Please name any agencies selected above. NA * Additional services required to return to the preadmission environment? Yes * Can the patient safely return to the preadmission environment? No * Has this patient been hospitalized within the prior 30 days at any hospital? No Coverage Notice Reviewer: [email or web address] Guero Colette Franco Notice Issued Date-Time: 10/20/2018 14:54 Notice Type: IM Discharge Notice Notice Delivered To: Patient Relationship to Patient: Self Dental Hygiene Teacher Name: Delivery Method: HAND - Hand Delivered [place] Days: Prior Verbal Notification: Recipient Understood Notice: Yes Recipient Signature: Yes Med Rec Note Co-signed by Attending: Coverage Notice Comment: IMM explained, signed, copy given, original placed on MR Last DP export: 10/20/18 1:49 p Patient Name: DIANNA CRUZ Page [id number] at 1109 All edits/amendments must be made on the electronic document DICTATION DATE: 10/22/181107 COTTON BAG SEWER: ELIZABETH 10/22/181107 RPT#: [id number] DC DATE:10/20/18 STATUS: DIS IN [facility] [address] [place] [address] END OF REPORT
== END 2018-10-20 16:47 | disposition home or self-care (01) | DRG 65 ==
LOC: D.ER 11:47 → D.EDHOLD 15:26 → D.MS 15:26
PROVIDERS: Emergency Medicine; ADMIT Internal Medicine Nephrology
DX: I63.9 Cerebral infarction, unspecified (principal); G81.94 Hemiplegia, unspecified affecting left nondominant side; F17.213 Nicotine dependence, cigarettes, with withdrawal; Z72.0 Tobacco use; E87.6 Hypokalemia; I10 Essential (primary) hypertension

== ENCOUNTER 2019-02-14 21:28 | Inpatient (IN) | payer MEDICARE ==
--- NOTE | ~2019-02-14 | HEMODYNAMI ---
PATIENT:DIANNA CRUZ MEDICAL RECORD: [id number] : 33 LOCATION:[facility] D.2 ADMISSION DATE: 02/18/19 Generatedon:02/19/201915:32 Patient name: DIANNA CRUZ Patient #: [id number] SSN: D OB: 1935 Date of study: 02/19/2019 Page: Of Hemodynamic Procedure Report Patient Data Patient Demographics Procedure consent was obtained First Name: DIANNA Gender: Female Last Name: ANTHONY : 1935 Patient #: [id number] Age: 83 year(s) Race: Unknown Additional ID: [id number] Contact details Address: [address] [place] [address] circle State: [place] City: [facility] Zip code: [address] Past Medical History Allergies Allergen Reaction Date Comments Reported Other allergy 02/19/2019 FLU SHOT, PCN, LATEX, Admission Admission Data Admission Date: 02/18/2019 Admission Time: 17:06 Room #: D.2122 Weight (lbs.): 110.23 Weight (kg.): 50 Lab Results Lab Result Date: 02/19/2019 Lab Result Time: 0:00 Biochemistry Name Units Result Min Max BUN mg/dl 13 --(--*-)-- 7 18 Creatinine mg/dl 0.6 --(*---)-- 0.6 1.3 CBC Name Units Result Min Max Hemoglobin g/dl 11.4 *-(----)-- 13.5 17.5 Procedure Procedure Types Cath Procedure Diagnostic Procedure LHC LHC w/Coronaries Procedure Description Procedure Date Procedure Date: 02/19/2019 Procedure Start Time: 15:22 Procedure End Time: 15:31 Procedure Staff Name Function Tom Camarillo MD Performing Physician Roula Leggett RN Nurse Samara Moy RT Scrub hCip Madera RT Monitor Procedure Data Cath Procedure Fluoroscopy Diagnostic fluoroscopy Total fluoroscopy Time: 2.7 time: 2.7 min min Diagnostic fluoroscopy Total fluoroscopy dose: 204 dose: 204 mGy mGy Contrast Material Contrast Material Type Amount (ml) Isovue 300 33 Entry Location Entry Primary Successful Side Size Upsize Upsize Entry Closure Romero ccessful Closure Location (Fr) 1 (Fr) 2 (Fr) Remarks Device Remarks Radial Right 6 Fr Mechanical artery Short Compression Estimated blood loss: 5 ml Diagnostic catheters Device Type Used For End Catheter Placement DIAGNOSTIC Newton 110cm 5 Procedure Fr catheter ([id number]) Procedure Complications No complications Procedure Medications Medication Administration Route Dosage 0.9% NaCl I.V. 100 ml/hr Oxygen etCO2 Nasal cannula 2 l/min Lidocaine 2% added to field 20 Heparin Flush Bag added to field 2 bags (1000units/500ml NS) Radial Cocktail added to field 1 syringe (Verapamil 2mg/Nitro 400mcg/Heparin 1500units) Versed I.V. 1 mg Fentanyl I.V. 50 mcg Versed I.V. 1 mg Fentanyl I.V. 50 mcg Versed I.V. 0.5 mg Hemodynamics Rest HGB: 11.4 (g/dl) Heart Rate: 80 (bpm) Pressure Samples Time Site Value (mmHg) Purpose Heart Use Rate(bpm) 15:26 LV 139/9,19 Snapshot 81 15:26 LV 126/8,9 Snapshot 75 15:26 AO 82/39(58) Pullback 76 Gradients Valve Time Site Site 2 Mean SEP/DFP Peak To Heart Use 1 (mmHg) (sec/min) Peak Rate (mmHg) (bpm) Aortic 15:26 LV AO 28 21 76 82/39(58) Calculations Valve P-P Mean Valve Index Valve Source Name Gradient Area Flow (cm2) Aortic 28 28 Snapshots Pre Cath Intra NCS Post Cath Vital Signs Time Heart Resp SPO2 etCO2 NIBP (mmHg) Rhythm Pain Sedation Rate (ipm) (%) (mmHg) Status Level (bpm) 14:59:48 80 16 98 30.8 183/72(125) NSR 0 (11) 10(A) , No pain 15:04:16 78 17 97 27 181/68(134) NSR 0 (11) 10(A) , No pain 15:08:40 77 13 97 0 161/69(123) NSR 0 (11) 10(A) , No pain 15:13:02 75 15 97 29.3 151/62(118) NSR 0 (11) 10(A) , No pain 15:17:23 72 14 96 25.5 137/55(101) NSR 0 (11) 10(A) , No pain 15:21:39 72 15 96 26.3 142/53(100) NSR 0 (11) 9(A) , No pain 15:25:59 85 19 96 32.3 94/49(71) NSR 0 (11) 9(A) , No pain 15:30:01 75 16 96 31.5 106/50(76) NSR 0 (11) 10(A) , No pain Medications Time Medication Route Dose Verified Delivered Reason Notes E ffectiveness by by 15:01:30 0.9% NaCl I.V. 100 Tom Roula used for ml/hr Marquise Leggett geodesist 15:01:36 Oxygen etCO2 2 l/min Tom Roula used for Nasal Marquise Leggett procedure cannula RN 15:01:41 Lidocaine 2% added 20ml Tom Tom for local to vial Marquise Camarillo MD anesthetic field 15:01:45 Heparin Flush added 2 bags Tom Tom used for Bag to Marquise Camarillo MD procedure (1000units/500ml field NS) 15:01:55 Radial Cocktail added 1 Tom Tom used for (Verapamil to syringe Marquise Camarillo MD procedure 2mg/Nitro field 400mcg/Heparin 1500units) 15:19:59 Versed I.V. 1 mg Tom Santos for Marquise Camarillo MD sedation 15:20:07 Fentanyl I.V. 50 mcg Tom Santos for Marquise Camarillo MD sedation 15:23:05 Versed I.V. 1 mg Tom Santos for Marquise Camarillo MD sedation 15:23:09 Fentanyl I.V. 50 mcg Tom Santos for Marquise Camarillo MD sedation 15:26:56 Versed I.V. 0.5 mg Tom Santos for Marquise Camarillo MD sedation Procedure Log Time Note 14:26:28 Brian Garduno RT(R) sent for patient. Start room use. 14:26:30 Time tracking: Regular hours (M-F 7:00 - 5:00) 14:26:34 Plan of Care:Hemodynamics will remain stable., Cardiac rhythm will remain stable., Comfort level will be maintained., Respiratory function will remain adequate., Patient/ family verbilizes understanding of procedure., Procedure tolerated without complication., Recovers from procedure without complications.. 14:44:01 Signed procedure consent form obtained from patient. 14:44:03 Diagnostic Cath status Urgent 14:44:13 H&P Date Dictated: 02/17/2019 Within 30 days and on chart.. 14:45:07 Patient allergic to Other allergyFLU SHOT, PCN, LATEX, 14:52:56 Patient received from Med/Surg to CCL 2 Alert and oriented. Tansferred to table in Supine position. 14:52:57 Warm blankets applied, and shelia hugger turned on for patient comfort. 14:52:58 Correct patient and procedure confirmed by team. 14:52:58 ECG and BP/O2 sat monitors applied to patient. 14:58:36 Vital chart was started 15:01:08 Baseline sample Acquired. 15:01:12 Rhythm: sinus rhythm 15:01:13 Full Disclosure recording started 15:01:14 Pre-procedure instructions explained to patient. 15:01:14 Pre-op teaching completed and patient verbalized understanding. 15:01:16 Family in patients room. 15:01:17 Patient NPO since Midnight. 15:01:19 Is patient on blood thinner?No 15:01:20 Patient diabetic? No. 15:01:27 Patient not . Patient is over age 55. 15:01:29 Previous problem with sedation/anesthesia? No ? 15:01:30 0.9% NaCl 100 ml/hr I.V. was administered by Roula Leggett RN; used for procedure; 15:01:33 Snore? Yes 15:01:34 Sleep apnea? No 15:01:35 Deviated septum? No 15:01:35 Opens mouth fully? Yes 15:01:36 Oxygen 2 l/min etCO2 Nasal cannula was administered by Roula Leggett RN; used for procedure; 15:01:36 Sticks out tongue? Yes 15:01:40 Airway obstruction? Yes COPD 15:01:41 Lidocaine 2% 20ml vial added to field was administered by Tom Camarillo MD; for local anesthetic; 15:01:43 Dentures? No OUT 15:01:45 Heparin Flush Bag (1000units/500ml NS) 2 bags added to field was administered by Tom Camarillo MD; used for procedure; 15:01:46 Modified Jermeie's test Ulnar < 7 seconds 15:01:48 Patient pain scale 0/10 ?. 15:01:55 Radial Cocktail (Verapamil 2mg/Nitro 400mcg/Heparin 1500units) 1 syringe added to field was administered by Tom Camarillo MD; used for procedure; 15::55 IV patent on arrival in left hand with 0.9% NaCl at KVO. 15::58 Lab results completed and on chart. 15:02:01 Right Radial & Right Groin area was prepped with chlora-prep and draped in sterile fashion 15:02:02 Alarms reviewed by R. N. 15:02:02 Sharps counted by scrub and verified by R.N. 15:06:15 Physician paged 15:09:03 Use device set Radial Dx or PCI 15:09:05 Tegaderm 4 x 4 (1626W) opened to sterile field. 15:09:06 ACIST Manifold (09455) opened to sterile field. 15:09:07 ACIST Hand Control (19251) opened to sterile field. 15:09:08 ACIST Syringe (31168) opened to sterile field. 15:09:08 Medline Cath Pack ([id number]) opened to sterile field. 15:09:09 Bag Decanter (2002S) opened to sterile field. 15:09:09 DIAGNOSTIC WIRE .035 260cm J wire (968505) opened to sterile field. 15:09:10 MBrace Wrist Support ([id number]) opened to sterile field. 15:09:12 SHEATH 6FR Slender (41-9509) opened to sterile field. 15:09:37 Patient Weight : 110.23 lbs 15::58 Lab Result : BUN 13 mg/dl 15::58 Lab Result : Hemoglobin 11.4 g/dl 15::58 Lab Result : Creatinine 0.6 mg/dl 15::35 Zero performed for pressure channel P1 15:19:42 Physician arrived 15::42 --------ALL STOP TIME OUT------ 15:19:43 Final Timeout: patient, procedure, and site verified with staff and physician. All members of the team are in agreement. 15:19:46 Right Radial & Right Groin site verified by team. 15::59 Versed 1 mg I.V. was administered by Tom Camarillo MD; for sedation; 15:: Fentanyl 50 mcg I.V. was administered by Tom Camarillo MD; for sedation; :: Maximum allowable Isovue 300 dose 300ml. Physician notified. (300ml for normal creatinines. For patients with creatinine of 1.7 or higher multiply weight(kg) x 5 divided by creatinine.) 15:: Fire Safety Assessment: A--An alcohol-based skin anteseptic being used preoperatively., C--Open oxygen or nitrous oxide is being used., D--An ESU, laser, or fiber-optic light is being used. 15:: Physical assessment completed. ASA score P 2 - A patient with mild systemic disease as per Tom Camarillo MD. 15::33 Sedation plan: IV Moderate Sedation Medication:Versed, Fentanyl 15::20 Procedure started. 15:: Local anesthetic to right radial artery with Lidocaine 2% by Tom Camarillo MD.INITIAL ACCESS ONLY 15::31 A 6 Fr Short sheath was inserted into the Right Radial artery 15::05 Versed 1 mg I.V. was administered by Tom Camarillo MD; for sedation; :: Fentanyl 50 mcg I.V. was administered by Tom Camarillo MD; for sedation; ::19 A DIAGNOSTIC Newton 110cm 5 Fr catheter ([id number]) was advanced over the wire and used for Procedure. 15:: LV gram done using BAXTER ::24 Injector settings: Ml/sec: 5, Volume: 15, 15::56 Versed 0.5 mg I.V. was administered by Tom Camarillo MD; for sedation; 15::57 LV hemodynamics recorded. 15:27:02 EF : 60 % 15::04 LCA angiography performed. 15::20 RCA angiography performed. 15::11 Catheter removed. 15:29:15 TR BAND Standard ([id number]) opened to sterile field. 15:29:21 Sheath removed intact; hemostasis achieved with Mechanical Compression to the Right Radial artery. 15::23 Procedure ended.(Physican Out) 15:29:48 Fluoroscopy time 02.70 minutes. 15:29:51 Fluoroscopy dose: 204 mGy 15:29:51 Flurop Dose total: 204 15:29:54 Contrast amount:Isovue 300 33ml. 15:29:55 Sharps counted by scrub and verified by R.N. 15:29:58 Insertion/operative site no bleeding no hematoma. 15:30:44 Post right radial artery:stable, soft, clean and dry 15:30:45 Post Procedure Pulses reassessed and unchanged 15:30:48 Post-procedure physical assessment completed. ASA score P 2 - A patient with mild systemic disease as per Tom Camarillo MD. 15:30:51 Post procedure rhythm: unchanged. 15:30:53 Estimated blood loss: 5 ml 15:30:54 Post procedure instruction explained to patient.Patient verbalizes understanding. 15:30:54 Patient needs reinforcement of post procedure teaching. 15:31:15 Procedure and supply charges have been captured, reviewed, submitted and are correct. 15:31:18 Procedure Complication : No complications 15:31:19 Vital chart was stopped 15:31:20 See physician's report for complete and final results. 15:31:22 Report given to PCU. 15:31:24 Patient transfered to PCU with Stretcher. 15:31:26 Procedure ended. 15:31:26 Full Disclosure recording stopped 15:31:31 End room use (Document Last) Device Usage Item Name Manufacture Quantity Catalog Hospital Part Current Minimal Lot# / Number Charge Number Stock Stock Serial# Code Tegaderm 4 3M 1 1626W [id number] 166958 364304 5 x 4 (1626W) ACIST Acist 1 03640 208462 569970 660832 5 Manifold Medical (66430) Systems Inc ACIST Hand Acist 1 03178 723371 966096 572618 5 Control Medical (94598) Systems Inc ACIST Acist 1 90686 651337 773310 358829 20 Syringe Medical (74019) Systems Inc Medline Medline 1 [id number] 227865 02984 100563 5 Cath Pack ([id number]) Bag Microtek 1 2001S 391785 33356 129319 5 Decanter Medical Inc. () DIAGNOSTIC St Jarred 1 626997 043405 736822 521987 30 WIRE .035 260cm J wire (897031) MBrace Advanced 1 140-0250-00 763610 81842 281981 5 Wrist Vascular Support Dynamics ([id number]) SHEATH 6FR Terumo 1 [id number] 614737 800998 284605 5 Slender (08-1750) DIAGNOSTIC Terumo 1 40-9878 730035 469657 919344 5 Newton 110cm 5 Fr catheter (665832) TR BAND Terumo 1 [id number] 365173 348600 328230 40 Standard ([id number]) Signature Audit [place] Stage Time Signature Unsigned Intra-Procedure 02/19/2019 Chip Madera 3:32:02 PM RT(R) Signatures Monitor : Chip Madera RT Signature : Date : Time : [id number] [place] [address]
[~2019-02-14 21:28] MED LIST: ASPIRIN81 MG PO; LEVAQUIN750 MG PO; LISINOPRIL10 MG PO; Nicoderm [PBKC] TRANSDERM
[2019-02-14] MEDS ORDERED: LISINOPRIL20 MG PO (21:33)
[2019-02-14 22:01] LABS: APPEARANCE CLEAR (CLEAR); COLOR YELLOW (YELLOW); GLUCOSE NEGATIVE (NEGATIVE); KETONE SMALL mg/dL (NEGATIVE); NITRITE NEGATIVE (NEGATIVE); PROTEIN 1+ mg/dL (NEGATIVE); SPECIFIC GRAVITY 1.025 (1.005-1.020)
[2019-02-14 22:02] LABS: BILIRUBIN NEGATIVE (NEGATIVE); UROBILINOGEN NORMAL (NORMAL)
[2019-02-14 22:03] LABS: BACTERIA MODERATE /hpf (NONE SEEN); EPITHELIAL CELLS 0-5 /hpf (0-5); MUCUS <1+ /lpf (NONE SEEN); RED CELLS - URINE 0-5 /hpf (0-5); WHITE CELLS - URINE 0-5 /hpf (0-5)
[2019-02-14 22:09] LABS: BASOPHILS 0.4 % (0-2); EOSINOPHILS 0.1 % (0-7); HEMATOCRIT 36.3 % (36.0-48.0); HEMOGLOBIN 11.9 g/dL (12-16); IMMATURE GRANULOCYTES 0.1 % (0-5); LYMPHOCYTES 5.8 % (15-50); MCH 29.3 pg (26.0-34.0); MCHC 32.8 g/dL (31.0-37.0); MCV 89.4 fL (80.0-100.0); MEAN PLATELET VOLUME 11.1 fL (7.4-10.4); MONOCYTES 6.8 % (2-11); NEUTROPHILS 86.8 % (40-80); PLATELET COUNT 219 10x3/uL (130-400); RBC 4.06 10x6/uL (4.00-5.40); RDW 13.7 % (11.5-14.5); WBC 7.7 10x3/uL (4.8-10.8)
[2019-02-14 22:09] LABS: UDS - AMPHET NEGATIVE QUAL (NEGATIVE); UDS - BARB NEGATIVE QUAL (NEGATIVE); UDS - BENZO NEGATIVE QUAL (NEGATIVE); UDS - COCAINE NEGATIVE QUAL (NEGATIVE); UDS - OPIATE NEGATIVE QUAL (NEGATIVE); UDS - PCP NEGATIVE QUAL (NEGATIVE); UDS - THC NEGATIVE QUAL (NEGATIVE)
[2019-02-14 22:13] LABS: APTT 31.9 SECONDS (22.8-39.4); INR 1.19 (0.85-1.17); PROTIME 14.5 SECONDS (11.6-15.0)
[2019-02-14 22:17] LABS: ALBUMIN 3.7 g/dL (3.4-5.0); ALKALINE PHOSPHATASE 92 U/L (46-116); ALT (SGPT) 270 U/L (10-68); BILIRUBIN - TOTAL 0.69 mg/dL (0.2-1.3); CALC OSMOLALITY 280 mosm/kg (275-300); CHLORIDE - SERUM 103 mmol/L (98-107); GLUCOSE 107 mg/dL (74-106); POTASSIUM - SERUM 3.8 mmol/L (3.5-5.1); PROTEIN - SERUM 7.7 g/dL (6.4-8.2); SODIUM 139 mmol/L (136-145); UREA NITROGEN 22 mg/dL (7-18); eGFR NON AFRICAN AMERICAN 56 mL/min (90-120)
[2019-02-14 22:33] LABS: CKMB 0.7 U/L (0.0-3.6); CREATINE KINASE 130 UL (21-215); MAGNESIUM - SERUM 2.1 mg/dL (1.8-2.4); THYROID STIMULATING HORMONE 0.42 uIU/mL (0.36-3.74)
[2019-02-14 23:30] VITALS: BP 175/66
[2019-02-15 01:10] VITALS: BP 165/58; BMI 21.5
--- NOTE | 2019-02-15 04:39 | NUR ---
NO TELEMETRY MONITORS AVAILABLE PER SEWING LINE BALER
--- NOTE | 2019-02-15 07:34 | NUR ---
AWAKE AND ALERT. ORIENTED X3. NO C/O AT THIS TIME. LUNGS HAVE WHEEZES THROUGHOUT, REPORTED NON PRODUCTIVE COUGH. SKIN IS INTACT WITHOUT REDNESS. REPORTS PAIN TO LEFT ANKLE AND SOME SCATTERED BRUISES NOTED. SL TO LEFT WRIST IS PATETN WTIHOUT REDNESS AT INSERTION SITE. DENIES NEEDS.
[2019-02-15 08:29] VITALS: BP 135/50
--- NOTE | 2019-02-15 09:30 | NUR ---
TOOK ALL OF AM MEDS WITHOUT DIFFICULTY. DENIES NEEDS.
[2019-02-15 10:10] VITALS: BMI 21.4
--- NOTE | 2019-02-15 11:45 | NUR ---
UP TO BR WITH MIN ASSIST OF ONE. VOIDED WITHOUT DIFFICULTY. DENIES NEEDS.
--- NOTE | 2019-02-15 14:23 | NUR ---
RESTING QUIETLY IN BED AT THIS TIME. DENIES NEEDS.
[2019-02-15 14:50] VITALS: BP 127/44
--- NOTE | 2019-02-15 15:40 | NUR ---
OFF UNIT VIA FOR CT SCAN.
--- NOTE | 2019-02-15 15:40 | MORECARE ---
CASE MANAGEMENT DISCHARGE SUMMARY PATIENT: DIANNA CRUZ UNIT: [id number] ADM DATE: 02/14/19 AGE: 83 : 34 SEX: F ROOM/BED: D.2203 AUTHOR: TONY GOMES PHYSICIAN: REFERRING PHYSICIAN: MIKAYLA DOWNING MD DATE OF SERVICE: 02/15/19 Discharge Plan Patient Name: DIANNA CRUZ [facility] [facility] 1935 Planned Disposition: Anticipated Discharge Date: Discharge Date: Expected LOS: Initial Reviewer: [email or web address] Initial Review Date: 02/15/2019 Generated: 02/15/19 4:40 pm Coverage Notice Reviewer: [email or web address] - Ellen Bhakta Notice Issued Date-Time: 02/15/2019 15:30 Notice Type: Medicare Outpatient Observation Notice Notice Delivered To: Patient Relationship to Patient: [employer] Sewer Name: Delivery Method: HAND - Hand Delivered Lissett Days: Prior Verbal Notification: Recipient Understood Notice: Yes Recipient Signature: Yes Med Rec Note Co-signed by Attending: Coverage Notice Comment: Patient Name: DIANNA CRUZ Page [phone] at 1540 All edits/amendments must be made on the electronic document DICTATION DATE: 02/15/191539 COMMERCIAL DIRECTOR: ELIZABETH 02/15/19 154 RPT#: [id number] DC DATE: STATUS: ADM IN [facility] [address] [place] [address] END OF REPORT
[2019-02-15 16:32] VITALS: BP 157/54
--- NOTE | 2019-02-15 19:29 | NUR ---
ATE ALL OF CL SUPPER. DENIES NEEDS. NO CHANGES NOTED.
--- NOTE | 2019-02-15 20:00 | NUR ---
ALERT RESTIGN IN BED, SEE SHIFT ASSESSMENT, CALL LIGHT IN REACH
[2019-02-15 21:24] VITALS: BP 179/55
[2019-02-16 01:28] VITALS: BP 183/66
[2019-02-16 05:34] VITALS: BP 173/54
--- NOTE | 2019-02-16 07:29 | NUR ---
PT IS RESTING IN BED WITH EYES OPEN. RESPIRATIONS ARE EVEN AND UNLABORED. PT DENIES PRESENCE OF PAIN AND/OR N/V AT THIS TIME. SRINIVAS ALARM IS ON AND WORKING. PT WALKER IS AVAILABLE. PT DENIES FURTHER NEEDS. BED IS IN THE LOWEST POSITION. CALL LIGHT AND BEDSIDE TABLE ARE WITHIN REACH. SIDE RAILS X 2. WILL CONT TO MONITOR.
[2019-02-16 09:10] VITALS: BP 177/60
[2019-02-16 09:56] LABS: BASOPHILS 1.1 % (0-2); EOSINOPHILS 2.4 % (0-7); HEMATOCRIT 37.2 % (36.0-48.0); IMMATURE GRANULOCYTES 0.3 % (0-5); LYMPHOCYTES 16.4 % (15-50); MCH 29.3 pg (26.0-34.0); MCHC 32.3 g/dL (31.0-37.0); MCV 90.7 fL (80.0-100.0); MEAN PLATELET VOLUME 11.2 fL (7.4-10.4); MONOCYTES 10.2 % (2-11); NEUTROPHILS 69.6 % (40-80); PLATELET COUNT 208 10x3/uL (130-400); RDW 13.8 % (11.5-14.5)
[2019-02-16 10:02] LABS: CALC OSMOLALITY 284 mosm/kg (275-300); CALCIUM 8.8 mg/dL (8.5-10.1); CHLORIDE - SERUM 107 mmol/L (98-107); CREATININE - SERUM 0.7 mg/dL (0.6-1.3); GLUCOSE 125 mg/dL (74-106); POTASSIUM - SERUM 3.3 mmol/L (3.5-5.1); SODIUM 143 mmol/L (136-145); UREA NITROGEN 11 mg/dL (7-18); eGFR NON AFRICAN AMERICAN 84 mL/min (90-120)
[2019-02-16 10:08] LABS: WBC 3.7 10x3/uL (4.8-10.8)
[2019-02-16 12:09] VITALS: BMI 21.4
[2019-02-16 13:04] VITALS: BP 175/50
[2019-02-16 15:14] LABS: T4 THYROXIN - FREE 1.03 ng/dL (0.76-1.46); THYROID STIMULATING HORMONE 0.85 uIU/mL (0.36-3.74)
[2019-02-16 16:44] VITALS: BP 174/51
--- NOTE | 2019-02-16 20:00 | NUR ---
ALERT SITTING UP IN BED, ABLE TO AMBULATE TO BATHROOM WITH WLAKER, DENIES PAIN, CALL LIGHT IN REACH. SEE SHIFT ASSESSMENT
[2019-02-16 20:57] VITALS: BP 175/63
[2019-02-17 01:42] VITALS: BP 179/59
[2019-02-17 04:58] LABS: BASOPHILS 0.9 % (0-2); EOSINOPHILS 4.2 % (0-7); HEMATOCRIT 34.8 % (36.0-48.0); HEMOGLOBIN 11.5 g/dL (12-16); IMMATURE GRANULOCYTES 0.2 % (0-5); LYMPHOCYTES 20.4 % (15-50); MCH 29.6 pg (26.0-34.0); MCV 89.5 fL (80.0-100.0); MEAN PLATELET VOLUME 11.2 fL (7.4-10.4); MONOCYTES 11.9 % (2-11); NEUTROPHILS 62.4 % (40-80); PLATELET COUNT 224 10x3/uL (130-400); RBC 3.89 10x6/uL (4.00-5.40); RDW 13.6 % (11.5-14.5); WBC 4.6 10x3/uL (4.8-10.8)
[2019-02-17 05:13] LABS: CALC OSMOLALITY 285 mosm/kg (275-300); CALCIUM 8.6 mg/dL (8.5-10.1); CHLORIDE - SERUM 110 mmol/L (98-107); CREATININE - SERUM 0.7 mg/dL (0.6-1.3); GLUCOSE 100 mg/dL (74-106); POTASSIUM - SERUM 3.7 mmol/L (3.5-5.1); SODIUM 144 mmol/L (136-145); UREA NITROGEN 11 mg/dL (7-18); eGFR NON AFRICAN AMERICAN 84 mL/min (90-120)
[2019-02-17 05:24] VITALS: BP 162/54
--- NOTE | 2019-02-17 08:07 | NUR ---
AWAKE AND ALERT. ORIENTED X3. NO C/O AT THIS TIME. LUNGS ARE DIMINISHED THROUGHOUT, NO COUGH NOTED. SKIN IS INTACT WTIHOUT REDNESS. SL TO LEFT FOREARM IS PATENT WITHOUT REDNESS AT INSERTION SITE. DENIES NEEDS.
[2019-02-17 08:56] VITALS: BP 168/55
--- NOTE | 2019-02-17 10:20 | NUR ---
TOOK AM MEDS WITHOUT DIFFICULTY. ATE ALL OF BREAKFAST WITHOUT NAUSEA OR PAIN. DENIES NEEDS.
[2019-02-17 13:26] VITALS: BP 177/66
[2019-02-17 17:25] VITALS: BP 177/51
--- NOTE | 2019-02-17 19:30 | NUR ---
ATE ABOUT HALF OF SUPPER. NO CHANGES NOTED. DENIES NEEDS.
[2019-02-17 20:00] VITALS: BP 171/62
[2019-02-18] VITALS: BP 151/46
--- NOTE | 2019-02-18 00:09 | NUR ---
resting in bed no s/s of distress resprations even and unlabored call light and water in reach.
[2019-02-18 04:00] VITALS: BP 160/71
[2019-02-18 04:36] LABS: BASOPHILS 1.2 % (0-2); EOSINOPHILS 4.6 % (0-7); HEMATOCRIT 38.4 % (36.0-48.0); HEMOGLOBIN 12.4 g/dL (12-16); LYMPHOCYTES 26.5 % (15-50); MCH 28.8 pg (26.0-34.0); MCHC 32.3 g/dL (31.0-37.0); MCV 89.3 fL (80.0-100.0); MONOCYTES 8.1 % (2-11); NEUTROPHILS 59.6 % (40-80); PLATELET COUNT 260 10x3/uL (130-400); RDW 13.5 % (11.5-14.5)
[2019-02-18 04:49] LABS: CALC OSMOLALITY 285 mosm/kg (275-300); CALCIUM 8.7 mg/dL (8.5-10.1); CHLORIDE - SERUM 108 mmol/L (98-107); CREATININE - SERUM 0.6 mg/dL (0.6-1.3); GLUCOSE 102 mg/dL (74-106); POTASSIUM - SERUM 3.8 mmol/L (3.5-5.1); SODIUM 144 mmol/L (136-145); UREA NITROGEN 11 mg/dL (7-18); eGFR NON AFRICAN AMERICAN > 90 mL/min (90-120)
--- NOTE | 2019-02-18 07:47 | NUR ---
UP TO BR WITH MIN ASSIST USING RW. VOIDED WITHOUT DIFFICULTY. VINNY CARE PER SELF. REPOSITIONED IN BED FOR COMFORT. LUNGS ARE DIMINISHED THROUGHOUT, OCCASSIONAL DRY COUGH NOTED. SKIN IS INTACT WITHOUT REDNESS. SL TO LEFT FOREARM IS PATENT WITHOUT REDNESS AT INSERTION SITE. DENIES NEEDS.
[2019-02-18 08:15] VITALS: BP 196/70
[2019-02-18 12:24] VITALS: BP 121/58
--- NOTE | 2019-02-18 12:30 | NUR ---
ATE MOST OF LUNCH. DENIES NEEDS.
--- NOTE | 2019-02-18 12:42 | NUR ---
NUTRITION F/U CHART REVIEWED, PT VISIT. TOLERATING REG DIET WITH 75% INTAKE RECENT MEALS. WILL CONTINUE TO MONITOR INTAKE, HONOR FOOD PREFERENCES. RD FOLLOWING
--- NOTE | 2019-02-18 15:00 | NUR ---
UP TO BR WITH ONE PERSON MIN ASSIST. VOIDED WITHOUT DIFFICULTY. AMBULATED AROUND ROOM TO RELIEVE GAS PAINS IN UPPER ABDOMEN. BELCHED LOUDLY AFTER AMBULATION AND STATED SHE FELT BETTER.
[2019-02-18 16:26] VITALS: BP 165/60
--- NOTE | 2019-02-18 18:23 | NUR ---
ATE ALMOST ALL OF SUPPER. UP TO BR WITH ONE PERSON MIN ASSIST. VOIDED WITHOUT DIFFICULTY. NO CHANGES NOTED. DENIES NEEDS.
[2019-02-18 20:00] VITALS: BP 151/53
--- NOTE | 2019-02-18 22:21 | NUR ---
SPOKE WITH PATIENT ABOUT CONSENT FOR HEART CATH PTCA (MARQUITA) AND BLOOD CONSENT FOR CARDIAC CATHETERIZATION POSSIBLE AORTOGRAM WITH ARTERIAL-FEMORAL RUNOFF. SHE STATED SHE TALKED WITH HER DAUGHTER AND HER DAUGHTER SAID FOR HER NOT TO SING ANYTHING UNTILL SHE GOT HERE SHE WILL BE HERE BY NOON.
[2019-02-19] VITALS (8 sets, daily range): BP systolic 121–175; BP diastolic 52–71
--- NOTE | 2019-02-19 02:16 | NUR ---
RESTING IN BED RESPRATIONS EVEN AND UNLABORED CALL LIGHT IN REACH.
[2019-02-19 05:25] LABS: HEMATOCRIT 34.8 % (36.0-48.0); HEMOGLOBIN 11.4 g/dL (12-16); MCH 29.1 pg (26.0-34.0); MCHC 32.8 g/dL (31.0-37.0); MCV 88.8 fL (80.0-100.0); MEAN PLATELET VOLUME 11.1 fL (7.4-10.4); PLATELET COUNT 235 10x3/uL (130-400); RBC 3.92 10x6/uL (4.00-5.40); RDW 13.5 % (11.5-14.5); WBC 5.5 10x3/uL (4.8-10.8)
[2019-02-19 05:27] LABS: CALC OSMOLALITY 286 mosm/kg (275-300); CALCIUM 8.7 mg/dL (8.5-10.1); CARBON DIOXIDE 29.3 mmol/L (21.0-32.0); CHLORIDE - SERUM 108 mmol/L (98-107); CREATININE - SERUM 0.6 mg/dL (0.6-1.3); GLUCOSE 103 mg/dL (74-106); POTASSIUM - SERUM 3.6 mmol/L (3.5-5.1); SODIUM 144 mmol/L (136-145); UREA NITROGEN 13 mg/dL (7-18); eGFR NON AFRICAN AMERICAN > 90 mL/min (90-120)
[2019-02-19 05:54] LABS: BASOPHILS 2 % (0-2); EOSINOPHILS 3 % (0-7); LYMPHOCYTES 21 % (15-50); MONOCYTES 7 % (2-11); NEUTROPHILS 65 % (40-80); PLATELET ESTIMATE NORMAL
--- NOTE | 2019-02-19 07:37 | NUR ---
ALERT AND ORIENTED X 3. STATES WANTS TO WAIT ON DAUGHTER TO COME TO HOSPITAL BEFORE SIGNING CONSENTS FOR PROCEDURE TODAY. LUNGS CLEAR BILATERALLY IN ALL STALLINGS. HEART SOUNDS S1 AND S2 HEARD IN ALL STALLINGS. TELEMETRY IN PLACE. IV TO LFA PATENT WITHOUT REDNESS. O2 IN PLACE AT 2L NC. SKIN INTACT WITHOUT REDNESS. BOWEL SOUNDS ACTIVE X 4. DENIES PAIN. DENIES NEEDS. BED LOW. CALL MURO AND PERSONAL ITEMS IN REACH. WILL CONTINUE TO MONITOR.
--- NOTE | 2019-02-19 10:33 | NUR ---
CONSENTS SIGNED BY PATIENT'S SON FOR PROCEDURE PER PATIENT REQUEST. STATES NO ALLERGY TO IODINE OR SHELLFISH. STATES DOES HAVE LATEX ALLERGY. WILL NOTIFY PHYSICIAN.
--- NOTE | 2019-02-19 11:14 | NUR ---
NOTIFIED DR WASHBURN OF PT HGB AND HCT. NO ORDERS GIVEN.
--- NOTE | 2019-02-19 13:45 | NUR ---
PREOP MEDICATIONS GIVEN AND PT URINATED PRIOR TO MEDICATION ADMINISTRATION.
--- NOTE | 2019-02-19 14:15 | NUR ---
PATIENT SLEEPING. WILL CONTINUE TO MONITOR.
--- NOTE | 2019-02-19 16:24 | NUR ---
RECIEVED FROM LABOR RELATIONS SUPERVISOR. TELEMERTY SHOWS SR. TR BAND TO RIGHT WRIST. NO BLEEDING, FINGERS WARM. DENIES ANY NEEDS
--- NOTE | 2019-02-19 18:28 | NUR ---
UNABLE TO REMOVE TR BAND. PT STILL BLEEDS WHEN PRESSURE RELEASED. FINGER WARM. TELEMERTY SHOWS SR. WILL MONITOR
--- NOTE | 2019-02-19 19:15 | NUR ---
RECEIVED REPORT, WILL ASSUME CARE OF PT, VISITING WITH FAMILY, DENIES ANY NEEDS, BED IS LOW, SRX2, CALL LIGHT IN REACH, WILL CONTINUE PLAN OF CARE
--- NOTE | 2019-02-20 00:52 | NUR ---
I have reviewed this patient and I concur with the Shift Assessment completed by the Licensed Practical Nurse today this shift.
[2019-02-20 03:38] LABS: BASOPHILS 0.8 % (0-2); EOSINOPHILS 1.4 % (0-7); HEMATOCRIT 34.8 % (36.0-48.0); HEMOGLOBIN 11.1 g/dL (12-16); IMMATURE GRANULOCYTES 0.3 % (0-5); LYMPHOCYTES 24.6 % (15-50); MCH 28.5 pg (26.0-34.0); MCHC 31.9 g/dL (31.0-37.0); MCV 89.2 fL (80.0-100.0); MEAN PLATELET VOLUME 11.1 fL (7.4-10.4); MONOCYTES 11.7 % (2-11); NEUTROPHILS 61.2 % (40-80); PLATELET COUNT 222 10x3/uL (130-400); RDW 13.6 % (11.5-14.5); WBC 5.9 10x3/uL (4.8-10.8)
[2019-02-20 03:46] LABS: CALC OSMOLALITY 287 mosm/kg (275-300); CALCIUM 8.5 mg/dL (8.5-10.1); CARBON DIOXIDE 27.1 mmol/L (21.0-32.0); CHLORIDE - SERUM 109 mmol/L (98-107); CREATININE - SERUM 0.6 mg/dL (0.6-1.3); GLUCOSE 97 mg/dL (74-106); POTASSIUM - SERUM 3.5 mmol/L (3.5-5.1); SODIUM 144 mmol/L (136-145); UREA NITROGEN 14 mg/dL (7-18); eGFR NON AFRICAN AMERICAN > 90 mL/min (90-120)
[2019-02-20 04:20] VITALS: BP 155/51
[2019-02-20 08:31] VITALS: BP 177/63
--- NOTE | 2019-02-20 10:17 | NUR ---
URINE SPECIMEN COLLECTED AND TAKEN TO LAB FOR CULTURE. WILL MONITOR.
[2019-02-20 11:30] VITALS: BP 164/57
[2019-02-20 17:18] VITALS: BP 172/54
--- NOTE | 2019-02-20 19:42 | NUR ---
INITIAL ROUNDS AND ASSESSMENT COMPLETED. PT RESTING IN BED WITH NO DISTRESS. GUARD AT BEDSIDE. PT ALERT/ORIENTED. BED LOW, CALL LIGHT IN REACH. MONITOR AND CPOC.
--- NOTE | 2019-02-20 19:42 | NUR ---
ASSISTED PT UP TO BATHROOM TO VOID. PT AMBULATES WITH WALKER. SON AT BEDSIDE. FALL PRECAUTIONS/BED ALARM IN PLACE.
[2019-02-20 20:14] VITALS: BP 161/54
--- NOTE | 2019-02-20 20:59 | NUR ---
ASSISTED UP TO BATHROOM TO VOID USING WALKER. BACK TO BED. BEDTIME MEDS TAKEN. CALL LIGHT IN REACH. FALL PRECAUTIONS.
[2019-02-20 23:45] VITALS: BP 162/54
--- NOTE | 2019-02-21 02:46 | NUR ---
ASSISTED UP TO BATHROOM TO VOID. BACK TO BED. NO OTHER NEEDS. MONITOR AND CPOC.
[2019-02-21 03:42] LABS: BASOPHILS 1.3 % (0-2); EOSINOPHILS 2.2 % (0-7); HEMATOCRIT 34.1 % (36.0-48.0); HEMOGLOBIN 10.9 g/dL (12-16); IMMATURE GRANULOCYTES 0.2 % (0-5); LYMPHOCYTES 26.5 % (15-50); MCH 28.8 pg (26.0-34.0); MEAN PLATELET VOLUME 11.1 fL (7.4-10.4); MONOCYTES 9.7 % (2-11); NEUTROPHILS 60.1 % (40-80); PLATELET COUNT 234 10x3/uL (130-400); RBC 3.79 10x6/uL (4.00-5.40); RDW 13.6 % (11.5-14.5); WBC 5.6 10x3/uL (4.8-10.8)
[2019-02-21 03:49] VITALS: BP 158/53
[2019-02-21 03:56] LABS: CALC OSMOLALITY 289 mosm/kg (275-300); CALCIUM 8.4 mg/dL (8.5-10.1); CARBON DIOXIDE 29.7 mmol/L (21.0-32.0); CHLORIDE - SERUM 108 mmol/L (98-107); CREATININE - SERUM 0.6 mg/dL (0.6-1.3); GLUCOSE 120 mg/dL (74-106); POTASSIUM - SERUM 3.1 mmol/L (3.5-5.1); SODIUM 144 mmol/L (136-145); eGFR NON AFRICAN AMERICAN > 90 mL/min (90-120)
[2019-02-21 03:57] LABS: UREA NITROGEN 18 mg/dL (7-18)
--- NOTE | 2019-02-21 07:09 | NUR ---
REPORT RECEIVED. WILL CONTINUE WITH POC. PT CURRENTLY LYING SUPINE. CALL LIGHT W/I REACH. PT IS RESTING AT THE MOMENT. RR EVEN AND UNLABORED ON RA. L.FOR PIV IS SALINE LOCKED. NO S/S OF DISTRESS NOTED. PT DENIES ANY NEEDS AT THIS TIME. WILL CTM.
--- NOTE | 2019-02-21 08:57 | NUR ---
I have reviewed this patient and I concur with the Shift Assessment completed by the Licensed Practical Nurse today this shift.
[2019-02-21 10:00] VITALS: BP 174/68
--- NOTE | 2019-02-21 12:16 | NUR ---
PT IS NOW REFUSING TELEMETRY. WILL CTM.
[2019-02-21 16:43] VITALS: BP 163/78
[2019-02-21 17:14] VITALS: BP 169/47
[2019-02-21 19:55] VITALS: BP 168/63
--- NOTE | 2019-02-21 20:00 | NUR ---
INITIAL ROUNDS AND ASSESSMENT COMPLETED. PT RESTING IN BED WITH NO DISTRESS. NONLABORED RESPIRATIONS. SALINE LOCK TO LFA. ON LOVENOX FOR DVT THERAPY. REFUSING TELEMETRY. MONITOR AND CPOC.
--- NOTE | 2019-02-21 22:00 | NUR ---
BEDTIME MEDS GIVEN. PT RESTING WITH NO DISTRESS. CPOC.
--- NOTE | 2019-02-22 03:09 | NUR ---
PT RESTING WITH NO DISTRESS. RESPS EVEN/NONLABORED. MONITOR AND CPOC.
[2019-02-22 03:43] VITALS: BP 178/69
[2019-02-22 05:45] LABS: BASOPHILS 0.9 % (0-2); EOSINOPHILS 2.3 % (0-7); HEMOGLOBIN 11.3 g/dL (12-16); IMMATURE GRANULOCYTES 0.2 % (0-5); LYMPHOCYTES 27.4 % (15-50); MCH 28.7 pg (26.0-34.0); MCHC 32.3 g/dL (31.0-37.0); MCV 88.8 fL (80.0-100.0); MEAN PLATELET VOLUME 11.3 fL (7.4-10.4); MONOCYTES 7.5 % (2-11); NEUTROPHILS 61.7 % (40-80); RBC 3.94 10x6/uL (4.00-5.40); RDW 13.6 % (11.5-14.5); WBC 5.7 10x3/uL (4.8-10.8)
[2019-02-22 05:47] LABS: PLATELET COUNT 282 10x3/uL (130-400)
[2019-02-22 06:03] LABS: CALC OSMOLALITY 285 mosm/kg (275-300); CALCIUM 8.6 mg/dL (8.5-10.1); CARBON DIOXIDE 27.4 mmol/L (21.0-32.0); CHLORIDE - SERUM 107 mmol/L (98-107); CREATININE - SERUM 0.6 mg/dL (0.6-1.3); GLUCOSE 102 mg/dL (74-106); POTASSIUM - SERUM 3.5 mmol/L (3.5-5.1); SODIUM 143 mmol/L (136-145); UREA NITROGEN 16 mg/dL (7-18); eGFR NON AFRICAN AMERICAN > 90 mL/min (90-120)
--- NOTE | 2019-02-22 07:30 | NUR ---
ASSESSMENT COMPLETED. ALERT AND ORIENTED. REFUSES TO WEAR TELEMERTY. UP WITH ASSIST. LEFT FORE ARM SL. DENIES ANY NEEDS. WILL MONITOR. FAMILY AT BEDSIDE
[2019-02-22 07:38] VITALS: BP 172/61
[2019-02-22 11:56] VITALS: BP 170/51
[2019-02-22] MEDS ORDERED: LISINOPRIL10 MG PO (14:07)
[2019-02-22] MEDS ORDERED: LOPRESSOR25 MG PO (14:07)
--- NOTE | 2019-02-22 15:43 | NUR ---
PT DISCHARGED. IV DCD WITH TIP INTACT. INSTRUCTIONS GIVEN TO PT AND FAMILY. TO PRIVATE CAR PER WHEELCHAIR
--- NOTE | 2019-02-23 09:51 | MORECARE ---
CASE MANAGEMENT DISCHARGE SUMMARY PATIENT: DIANNA CRUZ UNIT: [id number] ADM DATE: 02/18/19 AGE: 83 : 34 SEX: F ROOM/BED: D.2122 AUTHOR: TONY GOMES PHYSICIAN: REFERRING PHYSICIAN: MIKAYLA DOWNING MD DATE OF SERVICE: 02/23/19 Discharge Plan Patient Name: DIANNA CRUZ [facility] [facility] 1935 Planned Disposition: Home Anticipated Discharge Date: 02/22/19 Discharge Date: 02/22/2019 Expected LOS: 4 Initial Reviewer: [email or web address] Initial Review Date: 02/15/2019 Generated: 02/23/19 10:50 am Coverage Notice Reviewer: [email or web address] Guero Bhakta Notice Issued Date-Time: 02/15/2019 15:30 Notice Type: Medicare Outpatient Observation Notice Notice Delivered To: Patient Relationship to Patient: Adventure Challenge Instructor Name: Delivery Method: HAND - Hand Delivered Lissett Days: Prior Verbal Notification: Recipient Understood Notice: Yes Recipient Signature: Yes Med Rec Note Co-signed by Attending: Coverage Notice Comment: Reviewer: [email or web address] Guero Harvey Notice Issued Date-Time: 02/21/2019 15:40 Notice Type: IM Discharge Notice Notice Delivered To: Patient Relationship to Patient: Self Adventure Challenge Instructor Name: Delivery Method: HAND - Hand Delivered Lissett Days: Prior Verbal Notification: Recipient Understood Notice: Yes Recipient Signature: Yes Med Rec Note Co-signed by Attending: Coverage Notice Comment: Last DP export: 02/15/19 2:40 p Patient Name: DIANNA CRUZ Page 43981 at 0951 All edits/amendments must be made on the electronic document DICTATION DATE: 02/23/1951 REMOTE OPERATIONS PRODUCER: ELIZABETH 02/23/1951 RPT#: [id number] DC DATE:02/22/19 STATUS: DIS IN [facility] [address] [place] [address] END OF REPORT
--- NOTE | 2019-02-26 11:27 | OP ---
PATIENT NAME: DIANNA CRUZ MEDICAL RECORD: [id number] :33 LOCATION:D.M2 D.2122 ADMISSION DATE:02/18/19 SURGEON: VAISHALI WASHBURN MD DATE OF OPERATION: 02/19/2019 PROCEDURES: 1. Left heart catheterization. 2. Selective coronary angiography. 3. Left ventriculogram. INDICATION: Angina and coronary artery disease. PROCEDURE IN DETAIL: After informed consent was obtained and after a detailed description of the risks, benefits as well as alternative therapies, the patient elected to proceed with angiogram and heart catheterization. The right radial area was prepped and draped in normal sterile fashion. Right radial artery was cannulated via modified Seldinger technique with placement of 6-Azerbaijani sheath. All catheters exchanged through this sheath. FINDINGS: Left ventriculogram was performed in the standard 30-degree BAXTER view reveals good cardiac wall motion throughout all segments. Overall ejection fraction estimated 60%. There is a 40-mm gradient across the aortic valve. SELECTIVE CORONARY ANGIOGRAPHY: Left main, left main descending, left circumflex, right coronary artery all have only moderate irregularities. Minimal coronary artery disease is present. No flow-limiting stenosis. OVERALL IMPRESSION: 1. No significant coronary artery disease present. 2. Aortic stenosis with a 40-mm gradient across the aortic valve. TRANSINT:[id number] Voice Confirmation ID: [id number] DOCUMENT ID: [id number] VAISHALI WASHBURN MD at 1127 CC: [id number] DICTATION DATE: 02/19/19 1531 INTERNAL COMMUNICATIONS MANAGER: 02/20/19 0022 DIS IN 02/22/[address] [facility] [address] [id number]
== END 2019-02-22 15:46 | disposition home or self-care (01) | DRG 287 ==
LOC: D.ER 21:28 → D.MS 23:03 → OBSVTIME 23:03 → D.MS 02-18 17:06 → D.M2 02-18 17:06
PROVIDERS: Family Medicine; Internal Medicine Interventional Cardiology; ADMIT Internal Medicine Nephrology; ATTEND Internal Medicine Nephrology
PROC: B2151ZZ Fluoroscopy of Left Heart using Low Osmolar Contrast (ICD-10-PCS; 2019-02-19)
PROC: 4A023N7 Measurement of Cardiac Sampling and Pressure, Left Heart, Percutaneous Approach (ICD-10-PCS; 2019-02-19)
PROC: B2111ZZ Fluoroscopy of Multiple Coronary Arteries using Low Osmolar Contrast (ICD-10-PCS; principal; 2019-02-19 14:26)
DX: I35.0 Nonrheumatic aortic (valve) stenosis (principal); N39.0 Urinary tract infection, site not specified; Z86.73 Personal history of transient ischemic attack (TIA), and cerebral infarction without residual deficits; J44.9 Chronic obstructive pulmonary disease, unspecified; I10 Essential (primary) hypertension; D64.9 Anemia, unspecified; R91.1 Solitary pulmonary nodule; R55 Syncope and collapse; E07.9 Disorder of thyroid, unspecified

== ENCOUNTER → 2019-02-26 09:06 | Outpatient (CLI) | payer MEDICARE ==
[2019-02-16 12:09] VITALS: BMI 21.4
[~2019-02-26 09:06] MED LIST changes: +HYDROCODON-ACE1 EAC7 PO; +LISINOPRIL20 MG PO; +LOPRESSOR25 MG PO
== END | disposition home or self-care (01) ==
LOC: D.CT 09:06
PROVIDERS: ATTEND Thoracic Surgery (Cardiothoracic Vascular Surgery)
DX: I65.23 Occlusion and stenosis of bilateral carotid arteries (principal)

== ENCOUNTER 2019-03-14 14:15 | Inpatient (IN) | payer MEDICARE ==
[~2019-03-14 14:15] MED LIST changes: -HYDROCODON-ACE1 EAC7 PO
[2019-03-14 16:06] VITALS: BP 178/50
--- NOTE | 2019-03-14 16:13 | NUR ---
PT LAYING IN BED. RESPIRATIONS ARE EVEN AND UNLABORED. NO DISTRESS NOTED. COLOR WNL FOR RACE. VSS. FAMILY AT BEDSIDE. WILL CONTINUE TO MONITOR
[2019-03-14 16:57] LABS: BASOPHILS 0.5 % (0-2); EOSINOPHILS 0.3 % (0-7); HEMATOCRIT 35.5 % (36.0-48.0); HEMOGLOBIN 11.2 g/dL (12-16); IMMATURE GRANULOCYTES 0.3 % (0-5); LYMPHOCYTES 11.8 % (15-50); MCH 28.7 pg (26.0-34.0); MCHC 31.5 g/dL (31.0-37.0); MONOCYTES 6.3 % (2-11); NEUTROPHILS 80.8 % (40-80); PLATELET COUNT 250 10x3/uL (130-400); RDW 14.4 % (11.5-14.5); WBC 9.2 10x3/uL (4.8-10.8)
[2019-03-14 17:05] LABS: APTT 30.4 SECONDS (22.8-39.4); INR 1.08 (0.85-1.17); PROTIME 13.5 SECONDS (11.6-15.0)
[2019-03-14 17:10] LABS: ALBUMIN 3.3 g/dL (3.4-5.0); BILIRUBIN - TOTAL 0.23 mg/dL (0.2-1.3); CALCIUM 8.8 mg/dL (8.5-10.1); CARBON DIOXIDE 27.2 mmol/L (21.0-32.0); CREATININE - SERUM 0.9 mg/dL (0.6-1.3); POTASSIUM - SERUM 4.2 mmol/L (3.5-5.1); PROTEIN - SERUM 6.8 g/dL (6.4-8.2)
--- NOTE | 2019-03-14 18:30 | NUR ---
RIGHT WRIST SPLINTED BY STONE WILLSON.
--- NOTE | 2019-03-14 20:11 | NUR ---
PT ALERT AND ORIENTED. RIGHT ARM IS SPLINTED, ELEVATED ON PILLOW. REVIEWED HOME MEDS AND HISTORY WITH PT AND FAMILY. COMPLETE ASSESSMENT PER FLOW-SHEET. PUT TELEMETRY, SCD'S AND YELLOW GOWN ON PT. ASSISTED PT UP TO BATHROOM. PT UNSTEADY GAIT AND BALANCE PROBLEMS. PUT BEDSIDE COMMODE IN ROOM. TURNED BED ALARM ON. PT SITTING UP IN BED EATING AT THIS TIME. WILL CONTINUE TO MONITOR.
[2019-03-14 21:25] VITALS: BP 151/55
[2019-03-14 21:59] LABS: APPEARANCE CLEAR (CLEAR); BILIRUBIN NEGATIVE (NEGATIVE); COLOR YELLOW (YELLOW); GLUCOSE 100 mg/dL (NEGATIVE); KETONE SMALL mg/dL (NEGATIVE); NITRITE NEGATIVE (NEGATIVE); PROTEIN NEGATIVE (NEGATIVE); UROBILINOGEN NORMAL (NORMAL)
[2019-03-14 23:43] VITALS: BP 151/55; BMI 21.3
[2019-03-15 01:19] VITALS: BP 150/60
[2019-03-15 06:52] LABS: BASOPHILS 0.4 % (0-2); EOSINOPHILS 0.6 % (0-7); HEMATOCRIT 30.9 % (36.0-48.0); HEMOGLOBIN 9.8 g/dL (12-16); IMMATURE GRANULOCYTES 0.4 % (0-5); LYMPHOCYTES 16.5 % (15-50); MCH 28.7 pg (26.0-34.0); MCHC 31.7 g/dL (31.0-37.0); MCV 90.4 fL (80.0-100.0); MEAN PLATELET VOLUME 11.2 fL (7.4-10.4); MONOCYTES 8.5 % (2-11); NEUTROPHILS 73.6 % (40-80); PLATELET COUNT 224 10x3/uL (130-400); RBC 3.42 10x6/uL (4.00-5.40); RDW 14.5 % (11.5-14.5); WBC 8.2 10x3/uL (4.8-10.8)
[2019-03-15 07:17] LABS: CALC OSMOLALITY 284 mosm/kg (275-300); CALCIUM 8.3 mg/dL (8.5-10.1); CARBON DIOXIDE 25.1 mmol/L (21.0-32.0); CHLORIDE - SERUM 110 mmol/L (98-107); GLUCOSE 116 mg/dL (74-106); PHOSPHOROUS 3.6 mg/dL (2.5-4.9); SODIUM 143 mmol/L (136-145); UREA NITROGEN 11 mg/dL (7-18)
[2019-03-15 07:18] LABS: CREATININE - SERUM 0.6 mg/dL (0.6-1.3); eGFR NON AFRICAN AMERICAN > 90 mL/min (90-120)
--- NOTE | 2019-03-15 08:14 | NUR ---
AWAKE AND ALERT. ORIENTED X3. REPORTS SEEING BLACK SPOTS. CHECKED BS PER PATIENT REQUEST AND IT WAS 111. WILL MONITOR. LUNGS ARE CLEAR BILATERALLY, NO COUGH NOTED. SKIN IS INTACT WITHOUT REDNESS. IV TO LEFT FOREARM IS PATENT WITHOUT REDNESS AT INSERTION SITE. CAST IN PLACE TO RIGHT FOREARM. NEURO CHECKS WNL. DENIES NEEDS.
[2019-03-15 09:01] VITALS: BP 114/48
--- NOTE | 2019-03-15 10:20 | NUR ---
CONSENTS SIGNED PER SON. ALL QUESTIONS ANSWERED.
--- NOTE | 2019-03-15 12:30 | NUR ---
UP TO BR WITH ONE PERSON MOD ASSIST. VOIDED WITHOUT DIFFICULTY. DENIES NEEDS.
[2019-03-15 13:05] VITALS: BP 153/45
[2019-03-15 13:24] VITALS: BMI 21.3
--- NOTE | 2019-03-15 14:40 | NUR ---
UP TO BR WITH ONE PERSON MOD ASSIST. VOIDED WITHOUT DIFFICUTLY. REQUESTED AND GIVEN 4MG MORPHINE SLOW IVP FOR C/O RIGHT ARM PAIN LEVEL 8. WILL MONITOR.
--- NOTE | 2019-03-15 16:46 | NUR ---
UP TO BR WITH ONE PERSON MOD ASSIST. VOIDED WITHOUT DIFFICULTY. OFF UNIT VIA BED FOR SURGERY. FAMILY AT BEDSIDE.
[2019-03-15 17:15] VITALS: BP 98/64
[2019-03-15 18:58] VITALS: BP 184/86
--- NOTE | 2019-03-15 19:20 | NUR ---
RETURNED FROM SURGERY.
--- NOTE | 2019-03-15 19:45 | NUR ---
PT SITTING UP IN BED WITHOUT DISTRESS, ALERT AND ORIENTED. FAMILY AT BEDSIDE. DENIES PAIN AT THIS TIME. RIGHT ARM IN SLING, BED ALARM ON. SCDS IN PLACE. IV LEFT HAND INFUSING 1/2NS @ 50. IV TO RIGHT ARM. PROVIDED PT WITH CRACKERS AND JELLO, TOLERATED WELL. CL IN REACH, WILL CTM
--- NOTE | 2019-03-15 20:40 | NUR ---
PT UP TO BEDSIDE COMMODE WITH MOD ASSIST. VOIDED 300ML WITHOUT DIFFICULTY. ASSISTED BACK INTO BED. DENIES PAIN. BED ALARM, SCDS ON. CL IN REACH, WILL CTM
[2019-03-16 05:38] LABS: BASOPHILS 0.2 % (0-2); EOSINOPHILS 0.1 % (0-7); HEMOGLOBIN 9.4 g/dL (12-16); IMMATURE GRANULOCYTES 0.3 % (0-5); LYMPHOCYTES 9.7 % (15-50); MCHC 32.4 g/dL (31.0-37.0); MCV 89.5 fL (80.0-100.0); MONOCYTES 7.6 % (2-11); NEUTROPHILS 82.1 % (40-80); PLATELET COUNT 196 10x3/uL (130-400); RBC 3.24 10x6/uL (4.00-5.40); WBC 9.7 10x3/uL (4.8-10.8)
[2019-03-16 05:58] LABS: CALC OSMOLALITY 276 mosm/kg (275-300); CALCIUM 8.3 mg/dL (8.5-10.1); CARBON DIOXIDE 26.2 mmol/L (21.0-32.0); CHLORIDE - SERUM 106 mmol/L (98-107); CREATININE - SERUM 0.5 mg/dL (0.6-1.3); GLUCOSE 117 mg/dL (74-106); POTASSIUM - SERUM 3.9 mmol/L (3.5-5.1); SODIUM 139 mmol/L (136-145); eGFR NON AFRICAN AMERICAN > 90 mL/min (90-120)
[2019-03-16 06:02] LABS: UREA NITROGEN 8 mg/dL (7-18)
[2019-03-16 06:26] VITALS: BP 159/53
--- NOTE | 2019-03-16 07:30 | NUR ---
UP TO BSC WITH ONE PERSON MOD ASSIST. VOIDED 200CC CLEAR YELLOW URINE WITHOUT DIFFICULTY. SKIN CARE PER SELF. REPOSITIONED IN BED FOR COMFORT.
--- NOTE | 2019-03-16 08:09 | NUR ---
AWAKE AND ALERT. ORIENTED X3. NO C/O AT THIS TIME. LUNGS HAVE FAINT CRACKLES IN UPPER LOBES. INSTRUCTED IN USE OF IS WITH RETURN DEMO. WILL MONITOR. SKIN IS INTACT WITHOUT REDNESS EXCEPT INCISION TO RIGHT ARM WHICH HAS A DRY INTACT DRESSING AND SLING IN PLACE. NEURO CHECKS WNL. IV TO LEFT FOREARM IS PATENT WITHOUT REDNESS AT INSERTION SITE. DENIES NEEDS.
[2019-03-16] MEDS ORDERED: HYDROCODON-ACE1 EAC7 PO (08:58)
[2019-03-16 09:30] VITALS: BP 148/57
--- NOTE | 2019-03-16 09:45 | NUR ---
UP TO BCS MOD ASSIST OF ONE. VOIDED WITHOUT DIFFICULTY.
--- NOTE | 2019-03-16 12:00 | NUR ---
REQUESTED AND GIVEN ONE HYDROCODONE PO FOR C/O RIGHT ARM PAIN LEVEL 10. WILL MONITOR.
[2019-03-16 12:49] VITALS: BP 170/56
--- NOTE | 2019-03-16 15:00 | OP ---
PATIENT NAME: DIANNA CRUZ MEDICAL RECORD: [id number] :33 LOCATION:D.MS Love2213 ADMISSION DATE:03/14/19 SURGEON: MERNA FOLEY MD DATE OF OPERATION: 03/15/2019 PREOPERATIVE DIAGNOSIS: Displaced distal radius fracture of the right wrist. POSTOPERATIVE DIAGNOSIS: Displaced distal radius fracture of the right wrist. PROCEDURE: Open reduction and internal fixation of displaced right wrist fracture. SURGEON: Merna Foley MD CIVIL ENGINEER IN TRAINING: Matt. INTRAOPERATIVE COMPLICATIONS: None. SUMMARY OF PATHOLOGIC FINDINGS: Consistent with the preoperative diagnosis, the patient had a dorsally comminuted angulated distal radius fracture reduced nicely under fluoroscopy and was fixed with a Burnet VariAx 2 distal radius system. OPERATIVE SUMMARY IN DETAIL: After obtaining the appropriate preoperative orthopedic surgery consent as well as anesthetic consultation, evaluation and clearance, the patient was brought to the operating room and placed on the operating table in supine position. After general laryngeal mask airway anesthesia was administered, tourniquet was placed about the proximal aspect of the right upper extremity. Right upper extremity was then prepped and draped in routine sterile fashion. At this point, appropriate timeout was taken and agreed upon by all including name identification, current medications, allergies, as well as the appropriate antibiotics. At this point, the arm was elevated and exsanguinated, tourniquet was inflated to 250 mmHg. Curvilinear incision was made in keeping with Drake's volar approach. The carpal tunnel was released in its entirety for mobilization and visualization. This was carried down using the FCR as a landmark, taken down to the level of the fracture itself, which was identified and reduced under fluoroscopy, held in reduction. Plate was pinned on provisionally and moved to the appropriate position. Serial and sequential drill and fill technique was utilized with a combination of both locking and nonlocking screws on both AP and lateral planes. Having completed this, radiographs were taken and sent to radiology for final radiographic analysis. The wound was then copiously irrigated and closed by Veto Gutierrez with a combination of #1 Vicryl, 2-0 Vicryl, and 4-0 Prolene. Sterile dressings were applied. Volar splint was applied. The patient was then awakened, taken to the recovery room in stable condition. All final needle and sponge counts were correct. TRANSINT:[id number] Voice Confirmation ID: [id number] DOCUMENT ID: [id number] OPERATIVE REPORT [id number] DIANNA CRUZ MD, MERNA JONES at 1500 CC: [id number] DICTATION DATE: 03/16/19 1037 PAINTER ASSISTANT: 03/16/19 1209 ADM IN [facility] [address] [place] [address]
[2019-03-16 17:44] VITALS: BP 106/58
--- NOTE | 2019-03-16 19:37 | NUR ---
ATE ONLY HER DESSERT OFF HER TRAY. DENIES NEEDS. FAMILY AT BEDSIDE.
--- NOTE | 2019-03-16 19:45 | NUR ---
ASSISTED PT UP TO BEDSIDE COMMODE WITH MOD ASSIST. PT VOIDED, ASSISTED WITH VINNY CARE AND AND BACK TO BED. PT PULLED OUT IV TO LEFT HAND WITH CATHETER INTACT. RESITED 22G IV TO LEFT HAND X1 ATTEMPT. BED ALARM ON. REFUSES SCDS. CL IN REACH, WILL CTM
[2019-03-16 20:40] VITALS: BP 163/54
[2019-03-17 00:51] VITALS: BP 180/63
[2019-03-17 04:48] VITALS: BP 174/80
[2019-03-17 06:25] LABS: BASOPHILS 0.2 % (0-2); EOSINOPHILS 2.6 % (0-7); HEMATOCRIT 29.5 % (36.0-48.0); HEMOGLOBIN 9.4 g/dL (12-16); IMMATURE GRANULOCYTES 0.1 % (0-5); LYMPHOCYTES 10.1 % (15-50); MCH 28.7 pg (26.0-34.0); MCHC 31.9 g/dL (31.0-37.0); MCV 89.9 fL (80.0-100.0); MEAN PLATELET VOLUME 11.3 fL (7.4-10.4); MONOCYTES 8.1 % (2-11); NEUTROPHILS 78.9 % (40-80); PLATELET COUNT 199 10x3/uL (130-400); RBC 3.28 10x6/uL (4.00-5.40); RDW 14.1 % (11.5-14.5); WBC 8.2 10x3/uL (4.8-10.8)
[2019-03-17 06:41] LABS: CALC OSMOLALITY 275 mosm/kg (275-300); CALCIUM 8.1 mg/dL (8.5-10.1); CARBON DIOXIDE 28.6 mmol/L (21.0-32.0); CHLORIDE - SERUM 104 mmol/L (98-107); CREATININE - SERUM 0.5 mg/dL (0.6-1.3); GLUCOSE 132 mg/dL (74-106); SODIUM 138 mmol/L (136-145); UREA NITROGEN 7 mg/dL (7-18); eGFR NON AFRICAN AMERICAN > 90 mL/min (90-120)
[2019-03-17 06:43] LABS: POTASSIUM - SERUM 3.2 mmol/L (3.5-5.1)
--- NOTE | 2019-03-17 08:00 | NUR ---
AWAKE AND ALERT. ORIENTED X3. NO C/O AT THIS TIME. LUNGS ARE CLEAR BILATERALLY NO COUGH NOTED. SKIN IS INTACT WITHOUT REDNESS EXCEPT INCISION TO RIGHT WRIST WHICH HAS A DRY INTACT DRESSING IN PLACE. NEURO CHECKS WNL. IV TO LEFT HAND IS PATENT WITHOUT REDNESS AT INSERTION SITE. DENIES NEEDS.
[2019-03-17 08:52] VITALS: BP 122/54
--- NOTE | 2019-03-17 09:23 | NUR ---
ATE MOST OF BREAKFAST TRAY. TOOK AM MEDS WITHOUT DIFFICULTY. REQUESTED AND GIVEN ONE PERCOCET PO FOR C/O RIGHT WRIST PAIN LEVEL 10. WILL MONITOR.
--- NOTE | 2019-03-17 10:30 | NUR ---
UP TO BR WITH ONE PERSON MOD ASSIST. VOIDED WITHOUT DIFFICULTY.
[2019-03-17 12:18] VITALS: BP 168/62
--- NOTE | 2019-03-17 12:53 | MORECARE ---
CASE MANAGEMENT DISCHARGE SUMMARY PATIENT: DIANNA CRUZ UNIT: [id number] ADM DATE: 03/14/19 AGE: 84 : 34 SEX: F ROOM/BED: D.2213 AUTHOR: MIREYA,DOC PHYSICIAN: REFERRING PHYSICIAN: MERNA FOLEY MD DATE OF SERVICE: 03/17/19 Discharge Plan Patient Name: DIANNA CRUZ Facility: [facility]:[place] : 1935 Planned Disposition: Home or Self Care Anticipated Discharge Date: Discharge Date: Expected LOS: Initial Reviewer: [email or web address] Initial Review Date: 03/14/2019 Generated: 03/17/19 1:53 pm Comments DCP- Discharge Planning Updated by [id number]: Ellen Bhakta on 03/17/19 11:[address] Patient Name: DIANNA CRUZ Admission Status: ER Accout number: [id number] Admission Date: 03-14-2019 : 1935 Admission Diagnosis:UNSP FRACTURE OF THE LOWER END OF RIGHT RADIUS, INIT Attending: MERNA FOLEY Current LOS: 3 Anticipated DC Date: Planned Disposition: Home or Self Care Primary Insurance: [employer] CHOICE PPO M[facility] Discharge Planning Comments: CM met with patient to complete initial dc planning assessment. CM educated patient on the CM role and verbal consent given by patient to complete assessment. Patient lives at home with her adult son where she is independent with her care. At discharge patient plans to return home and feels this is a safe discharge. She lives with her son and then spends the day with her daughter in the daytime. CM discussed availability of home health, rehab services, and medical equipment. She has a BSC, cane, walker, shower chair at home. She did not need or want home health. IMM served and explained. She was unable to sign due to her injury. Her son will be the one to drive her home today. Patient denied known discharge needs at this time. CM will continue to follow and will assist as needed with dc plans/needs. Table Worker Packager: Ellen Bhakta DCPIA - Discharge Planning Initial Assessment Updated by [email or web address]: Ellen Bhakta on 03/17/19 12:48 pm * Is the patient Alert and Oriented? Yes * How many steps to enter\exit or inside your home? * PCP [place] * Pharmacy [facility] [address] * Preadmission Environment Home with Family * ADLs Independent * Equipment Bedside Commode Rolling Walker Shower Chair Walker * List name and contact numbers for known caregivers / representatives who currently or will assist patient after discharge: SIMÓN (SON) [phone] * Verbal permission to speak to the caregivers and representatives has been obtained from the patient. N/A * Community resources currently utilized None * Additional services required to return to the preadmission environment? No * Can the patient safely return to the preadmission environment? Yes * Has this patient been hospitalized within the prior 30 days at any hospital? No Coverage Notice Reviewer: [email or web address] Guero Bhakta Notice Issued Date-Time: 03/17/2019 12:30 Notice Type: IM Discharge Notice Notice Delivered To: Patient Relationship to Patient: Professor Of Psychology Name: Delivery Method: HAND - Hand Delivered Lissett Days: Prior Verbal Notification: Yes Recipient Understood Notice: Yes Recipient Signature: Med Rec Note Co-signed by Attending: Coverage Notice Comment: Patient verbally understood notice she is unable to sign due to injury Patient Name: DIANNA CRUZ Page [phone] at 1253 All edits/amendments must be made on the electronic document DICTATION DATE: 03/17/191251 CERTIFIED MIDWIFE: ELIZABETH 03/17/19 125 RPT#: [id number] DC DATE: STATUS: ADM IN [facility] [address] [place] [address] END OF REPORT
--- NOTE | 2019-03-17 14:12 | MORECARE ---
CASE MANAGEMENT DISCHARGE SUMMARY PATIENT: DIANNA CRUZ UNIT: [id number] ADM DATE: 03/14/19 AGE: 84 : 34 SEX: F ROOM/BED: D.2213 AUTHOR: MIREYA,DOC PHYSICIAN: REFERRING PHYSICIAN: MERNA FOLEY MD DATE OF SERVICE: 03/17/19 Discharge Plan Patient Name: DIANNA CRUZ Facility: [facility]:[place] : 1935 Planned Disposition: Home or Self Care Anticipated Discharge Date: Discharge Date: Expected LOS: Initial Reviewer: [email or web address] Initial Review Date: 03/14/2019 Generated: 03/17/19 3:12 pm Comments DCP- Discharge Planning Updated by [email or web address]: Ellen Bhakta on 03/17/19 11:[address] Patient Name: DIANNA CRUZ Admission Status: ER Accout number: [id number] Admission Date: 03-14-2019 : 1935 Admission Diagnosis:UNSP FRACTURE OF THE LOWER END OF RIGHT RADIUS, INIT Attending: MERNA FOLEY Current LOS: 3 Anticipated DC Date: Planned Disposition: Home or Self Care Primary Insurance: HUMANA CHOICE PPO MCR [facility] Discharge Planning Comments: CM met with patient to complete initial dc planning assessment. CM educated patient on the CM role and verbal consent given by patient to complete assessment. Patient lives at home with her adult son where she is independent with her care. At discharge patient plans to return home and feels this is a safe discharge. She lives with her son and then spends the day with her daughter in the daytime. CM discussed availability of home health, rehab services, and medical equipment. She has a BSC, cane, walker, shower chair at home. She did not need or want home health. IMM served and explained. She was unable to sign due to her injury. Her son will be the one to drive her home today. Patient denied known discharge needs at this time. CM will continue to follow and will assist as needed with dc plans/needs. Bricklayer Helper: Ellen Bhakta DCPIA - Discharge Planning Initial Assessment Updated by [email or web address]: Ellen Bhakta on 03/17/19 12:48 pm * Is the patient Alert and Oriented? Yes * How many steps to enter\exit or inside your home? * PCP [place] * Pharmacy [facility] [address] * Preadmission Environment Home with Family * ADLs Independent * Equipment Bedside Commode Rolling Walker Shower Chair Walker * List name and contact numbers for known caregivers / representatives who currently or will assist patient after discharge: SIMÓN (SON) [phone] * Verbal permission to speak to the caregivers and representatives has been obtained from the patient. N/A * Community resources currently utilized None * Additional services required to return to the preadmission environment? No * Can the patient safely return to the preadmission environment? Yes * Has this patient been hospitalized within the prior 30 days at any hospital? No External Providers External Provider: [facility] Next Contact Date: Service Request Date: Service Type: Resolution: Reviewer: Comments: Coverage Notice Reviewer: [id number] Guero Bhakta Notice Issued Date-Time: 03/17/2019 12:30 Notice Type: IM Discharge Notice Notice Delivered To: Patient Relationship to Patient: Registered Private Duty Nurse Name: Delivery Method: HAND - Hand Delivered Lissett Days: Prior Verbal Notification: Yes Recipient Understood Notice: Yes Recipient Signature: Med Rec Note Co-signed by Attending: Coverage Notice Comment: Patient verbally understood notice she is unable to sign due to injury Last DP export: 03/17/19 11:53 a Patient Name: DIANNA CRUZ Page [phone] at 1412 All edits/amendments must be made on the electronic document DICTATION DATE: 03/17/191410 DAY CARE WORKER: ELIZABETH 03/17/19 141 RPT#: [id number] DC DATE: STATUS: ADM IN [facility] [address] [place] [address] END OF REPORT
--- NOTE | 2019-03-17 14:20 | MORECARE ---
CASE MANAGEMENT DISCHARGE SUMMARY PATIENT: DIANNA CRUZ UNIT: [id number] ADM DATE: 03/14/19 AGE: 84 : 34 SEX: F ROOM/BED: D.2213 AUTHOR: MIREYA,DOC PHYSICIAN: REFERRING PHYSICIAN: MERNA FOLEY MD DATE OF SERVICE: 03/17/19 Discharge Plan Patient Name: DIANNA CRUZ Facility: [facility]:[place] : 1935 Planned Disposition: Home or Self Care Anticipated Discharge Date: Discharge Date: Expected LOS: Initial Reviewer: [email or web address] Initial Review Date: 03/14/2019 Generated: 03/17/19 3:19 pm Comments DCP- Discharge Planning Updated by [id number]: Ellen Bhakta on 03/17/19 1:[address] AFTER SPEAKING WITH THE PATIENT AGAIN AND THE DAUGHTER THEY WOULD LIKE HOME HEALTH, [facility] THAT IS WHO SHE HAS USED IN THE PAST. REFERRAL SENT TO THEM TO LET THEM KNOW I ASLO SPOKE WITH THEM ABOUT SKILLED FACILITY AND IF SHE GOT HOME AND IT WAS TOO MUCH THAT THEY COULD SEE IF THEY COULD BE ADMITTED TO A SKILLED. THEY ASKED IF I COULD SEND A REFERRAL TO [facility] FOR THEM TO HAVE A HEADS UP. I WILL SEND A REFERRAL AND CALL JALEN EISENBERG TO ASSIST NEEDED DCP- Discharge Planning Updated by [id number]: Ellen Bhakta on 03/17/19 11:[address] Patient Name: DIANNA CRUZ Admission Status: ER Accout number: [id number] Admission Date: 03-14-2019 : 1935 Admission Diagnosis:UNSP FRACTURE OF THE LOWER END OF RIGHT RADIUS, INIT Attending: MERNA FOLEY Current LOS: 3 Anticipated DC Date: Planned Disposition: Home or Self Care Primary Insurance: HUMANA CHOICE PPO MCR [facility] Discharge Planning Comments: CM met with patient to complete initial dc planning assessment. CM educated patient on the CM role and verbal consent given by patient to complete assessment. Patient lives at home with her adult son where she is independent with her care. At discharge patient plans to return home and feels this is a safe discharge. She lives with her son and then spends the day with her daughter in the daytime. CM discussed availability of home health, rehab services, and medical equipment. She has a BSC, cane, walker, shower chair at home. She did not need or want home health. IMM served and explained. She was unable to sign due to her injury. Her son will be the one to drive her home today. Patient denied known discharge needs at this time. CM will continue to follow and will assist as needed with dc plans/needs. Sleeve Baster: Ellen Bhakta DCPIA - Discharge Planning Initial Assessment Updated by [email or web address]: Ellen Bhakta on 03/17/19 12:48 pm * Is the patient Alert and Oriented? Yes * How many steps to enter\exit or inside your home? * PCP [place] * [facility] [address] * Preadmission Environment Home with Family * ADLs Independent * Equipment Bedside Commode Rolling Walker Shower Chair Walker * List name and contact numbers for known caregivers / representatives who currently or will assist patient after discharge: SIMÓN (SON) [phone] * Verbal permission to speak to the caregivers and representatives has been obtained from the patient. N/A * Community resources currently utilized None * Additional services required to return to the preadmission environment? No * Can the patient safely return to the preadmission environment? Yes * Has this patient been hospitalized within the prior 30 days at any hospital? No Coverage Notice Reviewer: [email or web address] - Ellen Bhakta Notice Issued Date-Time: 03/17/2019 12:30 Notice Type: IM Discharge Notice Notice Delivered To: Patient Relationship to Patient: Oracle Database Administrator Name: Delivery Method: HAND - Hand Delivered Lissett Days: Prior Verbal Notification: Yes Recipient Understood Notice: Yes Recipient Signature: Med Rec Note Co-signed by Attending: Coverage Notice Comment: Patient verbally understood notice she is unable to sign due to injury Last DP export: 03/17/19 1:12 p Patient Name: DIANNA CRUZ Page [phone] at 1420 All edits/amendments must be made on the electronic document DICTATION DATE: 03/17/191418 PROFESSOR OF EXERCISE SCIENCE: ELIZABETH 03/17/191418 RPT#: [id number] DC DATE: STATUS: ADM IN [facility] [address] [place] [address] END OF REPORT
--- NOTE | 2019-03-17 14:35 | MORECARE ---
CASE MANAGEMENT DISCHARGE SUMMARY PATIENT: DIANNA CRUZ UNIT: [id number] ADM DATE: 03/14/19 AGE: 84 : 34 SEX: F ROOM/BED: D.2213 AUTHOR: MIREYA,DOC PHYSICIAN: REFERRING PHYSICIAN: MERNA FOLEY MD DATE OF SERVICE: 03/17/19 Discharge Plan Patient Name: DIANNA CRUZ Facility: [facility]:[place] : 1935 Planned Disposition: Home or Self Care Anticipated Discharge Date: Discharge Date: Expected LOS: Initial Reviewer: [email or web address] Initial Review Date: 03/14/2019 Generated: 03/17/19 3:35 pm Comments DCP- Discharge Planning Updated by [email or web address]: Ellen Bhakta on 03/17/19 1:[address] INFORMATION GIVEN TO DAUGHTER ABOUT [facility] ELLIS OBTAINED I ALSO CALLED JALEN AND LET HIM KNOW WILL SEND CLINICALS OVER DCP- Discharge Planning Updated by [email or web address]: Ellen Bhakta on 03/17/19 1:[address] AFTER SPEAKING WITH THE PATIENT AGAIN AND THE DAUGHTER THEY WOULD LIKE HOME HEALTH, HOME HEALTH THAT IS WHO SHE HAS USED IN THE PAST. REFERRAL SENT TO THEM TO LET THEM KNOW I ASLO SPOKE WITH THEM ABOUT SKILLED FACILITY AND IF SHE GOT HOME AND IT WAS TOO MUCH THAT THEY COULD SEE IF THEY COULD BE ADMITTED TO A SKILLED. THEY ASKED IF I COULD SEND A REFERRAL TO [facility] FOR THEM TO HAVE A HEADS UP. I WILL SEND A REFERRAL AND CALL JALEN EISENBERG TO ASSIST NEEDED DCP- Discharge Planning Updated by [id number]: Ellen Bhakta on 03/17/19 11:[address] Patient Name: DIANNA CRUZ Admission Status: ER Accout number: [id number] Admission Date: 03-14-2019 : 1935 Admission Diagnosis:UNSP FRACTURE OF THE LOWER END OF RIGHT RADIUS, INIT Attending: MERNA FOLEY Current LOS: 3 Anticipated DC Date: Planned Disposition: Home or Self Care Primary Insurance: [employer] CHOICE PPO MCR ADVANT Discharge Planning Comments: CM met with patient to complete initial dc planning assessment. CM educated patient on the CM role and verbal consent given by patient to complete assessment. Patient lives at home with her adult son where she is independent with her care. At discharge patient plans to return home and feels this is a safe discharge. She lives with her son and then spends the day with her daughter in the daytime. CM discussed availability of home health, rehab services, and medical equipment. She has a BSC, cane, walker, shower chair at home. She did not need or want home health. IMM served and explained. She was unable to sign due to her injury. Her son will be the one to drive her home today. Patient denied known discharge needs at this time. CM will continue to follow and will assist as needed with dc plans/needs. Mine Promotor: Ellen Bhakta DCPIA - Discharge Planning Initial Assessment Updated by [id number]: Ellen Bhakta on 03/17/19 12:48 pm * Is the patient Alert and Oriented? Yes * How many steps to enter\exit or inside your home? * PCP [place] * Pharmacy [facility] [address] * Preadmission Environment Home with Family * ADLs Independent * Equipment Bedside Commode Rolling Walker Shower Chair Walker * List name and contact numbers for known caregivers / representatives who currently or will assist patient after discharge: SIMÓN (SON) [phone] * Verbal permission to speak to the caregivers and representatives has been obtained from the patient. N/A * Community resources currently utilized None * Additional services required to return to the preadmission environment? No * Can the patient safely return to the preadmission environment? Yes * Has this patient been hospitalized within the prior 30 days at any hospital? No External Providers External Provider: [facility] and [facility] Next Contact Date: Service Request Date: Service Type: Resolution: Reviewer: Comments: Coverage Notice Reviewer: [id number] Guero Bhakta Notice Issued Date-Time: 03/17/2019 12:30 Notice Type: IM Discharge Notice Notice Delivered To: Patient Relationship to Patient: Back Hoe Machine Operator Name: Delivery Method: HAND - Hand Delivered Lissett Days: Prior Verbal Notification: Yes Recipient Understood Notice: Yes Recipient Signature: Med Rec Note Co-signed by Attending: Coverage Notice Comment: Patient verbally understood notice she is unable to sign due to injury Reviewer: [email or web address] Guero Bhakta Notice Issued Date-Time: 03/17/2019 14:30 Notice Type: Patient Choice Letter Notice Delivered To: Family Member Relationship to Patient: Daughter Back Hoe Machine Operator Name: MANDI MAYA Delivery Method: - Lissett Days: Prior Verbal Notification: Recipient Understood Notice: Recipient Signature: Med Rec Note Co-signed by Attending: Coverage Notice Comment: Last DP export: 03/17/19 1:20 p Patient Name: DIANNA CRUZ Page [id number] at 1435 All edits/amendments must be made on the electronic document DICTATION DATE: 03/17/191434 WORKERS COMPENSATION MANAGER: ELIZABETH 03/17/19 143 RPT#: [id number] DC DATE: STATUS: ADM IN [facility] [address] [place] [address] END OF REPORT
--- NOTE | 2019-03-17 15:09 | NUR ---
DISCHARGED TO HOME AMBULATORY WITH FAMILY. DISCHARGE INSTRUCTIONS GIVEN BOTH VERBALLY AND WRITTEN. ALL QUESTIONS ANSWERED. PATIENT AND FAMILY VERBALIZED UNDERSTANDING OF SAME. NEEDED PRESCRIPTIONS GIVEN TO PATIENT. IV TO LEFT HAND D/C WITH CATHETER INTACT. ALL BELONGINGS WITH PATIENT. DISCUSSED [facility] WILL CALL THEM WITH A TIME TO SEE HER.
--- NOTE | 2019-03-18 11:51 | MORECARE ---
CASE MANAGEMENT DISCHARGE SUMMARY PATIENT: DIANNA CRUZ UNIT: [id number] ADM DATE: 03/14/19 AGE: 84 : 34 SEX: F ROOM/BED: D.2213 AUTHOR: MIREYA,DOC PHYSICIAN: REFERRING PHYSICIAN: MERNA FOLEY MD DATE OF SERVICE: 03/18/19 Discharge Plan Patient Name: DIANNA CRUZ Facility: [facility]:[place] : 1935 Planned Disposition: Home or Self Care Anticipated Discharge Date: Discharge Date: 03/17/2019 Expected LOS: 0 Initial Reviewer: [id number] Initial Review Date: 03/14/2019 Generated: 03/18/19 12:51 pm DCP- Discharge Planning Updated by [email or web address]: Ellen Bhakta on 03/17/19 1:[address] INFORMATION GIVEN TO DAUGHTER ABOUT [facility] ELLIS OBTAINED I ALSO CALLED JALEN AND LET HIM KNOW WILL SEND CLINICALS OVER DCP- Discharge Planning Updated by [email or web address]: Ellen Bhakta on 03/17/19 1:[address] AFTER SPEAKING WITH THE PATIENT AGAIN AND THE DAUGHTER THEY WOULD LIKE [facility] THAT IS WHO SHE HAS USED IN THE PAST. REFERRAL SENT TO THEM TO LET THEM KNOW I ASLO SPOKE WITH THEM ABOUT SKILLED FACILITY AND IF SHE GOT HOME AND IT WAS TOO MUCH THAT THEY COULD SEE IF THEY COULD BE ADMITTED TO A SKILLED. THEY ASKED IF I COULD SEND A REFERRAL TO [facility] FOR THEM TO HAVE A HEADS UP. I WILL SEND A REFERRAL AND CALL JALEN EISENBERG TO ASSIST NEEDED DCP- Discharge Planning Updated by [email or web address]: Ellen Bhakta on 03/17/19 11:[address] Patient Name: DIANNA CRUZ Admission Status: ER Accout number: [id number] Admission Date: 03-14-2019 : 1935 Admission Diagnosis:UNSP FRACTURE OF THE LOWER END OF RIGHT RADIUS, INIT Attending: MERNA FOLEY Current LOS: 3 Anticipated DC Date: Planned Disposition: Home or Self Care Primary Insurance: [employer] CHOICE PPO MCR ADVANT Discharge Planning Comments: CM met with patient to complete initial dc planning assessment. CM educated patient on the CM role and verbal consent given by patient to complete assessment. Patient lives at home with her adult son where she is independent with her care. At discharge patient plans to return home and feels this is a safe discharge. She lives with her son and then spends the day with her daughter in the daytime. CM discussed availability of home health, rehab services, and medical equipment. She has a BSC, cane, walker, shower chair at home. She did not need or want home health. IMM served and explained. She was unable to sign due to her injury. Her son will be the one to drive her home today. Patient denied known discharge needs at this time. CM will continue to follow and will assist as needed with dc plans/needs. Fence Setter: Ellen Bhakta DCPIA - Discharge Planning Initial Assessment Updated by [email or web address]: Ellen Bhakta on 03/17/19 12:48 pm * Is the patient Alert and Oriented? Yes * How many steps to enter\exit or inside your home? * PCP [place] * Pharmacy [facility] [address] * Preadmission Environment Home with Family * ADLs Independent * Equipment Bedside Commode Rolling Walker Shower Chair Walker * List name and contact numbers for known caregivers / representatives who currently or will assist patient after discharge: SIMÓN (SON) [phone] * Verbal permission to speak to the caregivers and representatives has been obtained from the patient. N/A * Community resources currently utilized None * Additional services required to return to the preadmission environment? No * Can the patient safely return to the preadmission environment? Yes * Has this patient been hospitalized within the prior 30 days at any hospital? No Coverage Notice Reviewer: [email or web address] Guero Bhakta Notice Issued Date-Time: 03/17/2019 12:30 Notice Type: IM Discharge Notice Notice Delivered To: Patient Relationship to Patient: Feather Duster Winder Name: Delivery Method: HAND - Hand Delivered Lissett Days: Prior Verbal Notification: Yes Recipient Understood Notice: Yes Recipient Signature: Med Rec Note Co-signed by Attending: Coverage Notice Comment: Patient verbally understood notice she is unable to sign due to injury Reviewer: [email or web address] Guero Bhakta Notice Issued Date-Time: 03/17/2019 14:30 Notice Type: Patient Choice Letter Notice Delivered To: Family Member Relationship to Patient: Daughter Feather Duster Winder Name: MANDI MAYA Delivery Method: - Lissett Days: Prior Verbal Notification: Recipient Understood Notice: Recipient Signature: Med Rec Note Co-signed by Attending: Coverage Notice Comment: Last DP export: 03/17/19 1:35 p Patient Name: DIANNA CRUZ Page [id number] at 1151 All edits/amendments must be made on the electronic document DICTATION DATE: 03/18/19 1151 FRATERNITY ADVISER: ELIZABETH 03/18/19 1151 RPT#: [id number] DC DATE:03/17/19 STATUS: DIS IN [facility] [address] [place] [address] END OF REPORT
== END 2019-03-17 15:11 | disposition home health service (06) | DRG 512 ==
LOC: D.ER 14:15 → D.MS 18:15
PROVIDERS: Family Medicine; Internal Medicine Nephrology; ADMIT Orthopaedic Surgery; ATTEND Orthopaedic Surgery
PROC: 0PSH04Z Reposition Right Radius with Internal Fixation Device, Open Approach (ICD-10-PCS; principal; 2019-03-15 15:00)
DX: S52.501A Unspecified fracture of the lower end of right radius, initial encounter for closed fracture (principal); X58.XXXA Exposure to other specified factors, initial encounter; I10 Essential (primary) hypertension; J44.9 Chronic obstructive pulmonary disease, unspecified; I35.0 Nonrheumatic aortic (valve) stenosis

== ENCOUNTER → 2019-03-14 | Emergency (ER) | payer MEDICARE ==
[2019-03-15 13:24] VITALS: BMI 21.3
== END | disposition home or self-care (01) ==
LOC: D.ER 14:37
DX: S52.501A Unspecified fracture of the lower end of right radius, initial encounter for closed fracture (principal); S52.601A Unspecified fracture of lower end of right ulna, initial encounter for closed fracture; W18.30XA Fall on same level, unspecified, initial encounter; Y93.89 Activity, other specified; Y92.89 Other specified places as the place of occurrence of the external cause

== ENCOUNTER 2019-11-23 07:56 | Inpatient (IN) | payer MEDICARE ==
[~2019-11-23] VITALS: Ht 152.4 cm; Wt 57.8 kg
[2019-11-23] VITALS (8 sets, daily range): BP systolic 135–210; BP diastolic 59–129
[~2019-11-23 07:56] MED LIST changes: +HYDROCODON-ACE1 EAC7 PO
[2019-11-23 08:37] LABS: BASOPHILS 0.6 % (0-2); HEMATOCRIT 40.7 % (36.0-48.0); HEMOGLOBIN 12.7 g/dL (12-16); LYMPHOCYTES 14.3 % (15-50); MCH 28.5 pg (26.0-34.0); MCHC 31.2 g/dL (31.0-37.0); MCV 91.3 fL (80.0-100.0); MEAN PLATELET VOLUME 11.2 fL (7.4-10.4); MONOCYTES 6.4 % (2-11); NEUTROPHILS 77.7 % (40-80); PLATELET COUNT 238 10x3/uL (130-400); RBC 4.46 10x6/uL (4.00-5.40); RDW 13.8 % (11.5-14.5); WBC 6.9 10x3/uL (4.8-10.8)
[2019-11-23 08:49] LABS: APTT 29.1 SECONDS (22.8-39.4); INR 0.97 (0.85-1.17); PROTIME 12.8 SECONDS (11.6-15.0)
[2019-11-23 08:50] LABS: D-DIMER-QUANTITATIVE 0.92 ug/mLFEU (0.20-0.54)
[2019-11-23 08:52] LABS: CALC OSMOLALITY 285 mosm/kg (275-300); CALCIUM 8.8 mg/dL (8.5-10.1); CARBON DIOXIDE 27.6 mmol/L (21.0-32.0); CHLORIDE - SERUM 107 mmol/L (98-107); CREATININE - SERUM 0.8 mg/dL (0.6-1.3); GLUCOSE 141 mg/dL (74-106); POTASSIUM - SERUM 3.6 mmol/L (3.5-5.1); SODIUM 142 mmol/L (136-145); UREA NITROGEN 15 mg/dL (7-18); eGFR NON AFRICAN AMERICAN 72 mL/min (90-120)
[2019-11-23 09:13] LABS: ALBUMIN 3.4 g/dL (3.4-5.0); ALKALINE PHOSPHATASE 49 U/L (30-120); ALT (SGPT) 11 U/L (10-68); BILIRUBIN - TOTAL 0.38 mg/dL (0.2-1.3); CKMB 1.9 U/L (0.0-3.6); CREATINE KINASE 97 UL (21-215); PRO BNP 1180 pg/mL (0-450); PROTEIN - SERUM 7.6 g/dL (6.4-8.2)
[2019-11-23 09:15] LABS: TROPONIN-I 0.194 ng/mL (0.000-0.060)
--- NOTE | 2019-11-23 12:55 | NUR ---
REPORT TO RADHA. "ROOM NOT READY"
--- NOTE | 2019-11-23 14:06 | NUR ---
RECEIVED PT FROM ER. PT IS AAO AND UP WITH ASSIST. RR EVEN AND LABORED ON EXERTION ON 2L NC. PIV SALINE LOCKED. QUICKSTART, HISTORY, AND MED REQ COMPLETE. PT ORIENTED TO ROOM. PT LYING HIGH FOWLERS. CALL LIGHT W/I REACH. FAMILY AT BEDSIDE. WILL CTM.
[2019-11-23 15:44] LABS: CREATINE KINASE 136 UL (21-215)
[2019-11-23 15:45] LABS: TROPONIN-I 0.899 ng/mL (0.000-0.060)
[2019-11-23 16:59] LABS: SPECIFIC GRAVITY 1.015 (1.005-1.020)
[2019-11-23 17:00] LABS: BILIRUBIN NEGATIVE (NEGATIVE); GLUCOSE 50 mg/dL (NEGATIVE); KETONE NEGATIVE (NEGATIVE); NITRITE NEGATIVE (NEGATIVE); UROBILINOGEN NORMAL (NORMAL)
--- NOTE | 2019-11-23 19:53 | NUR ---
PT SITTING UP IN BED EATING CRACKERS. NO SIGNS OR SYMPTOMS OF DISTRESS NOTED. RESPIRATIONS EVEN AND UNLABORED. ASSIST PT TO RESTROOM AND BACK TO BED. GAIT STEADY. NO COMPLAINTS OF PAIN AT THIS TIME. WILL CONTINUE TO MONITOR.
[2019-11-23 22:11] LABS: CKMB 5.3 U/L (0.0-3.6); CREATINE KINASE 160 UL (21-215)
[2019-11-23 22:26] LABS: TROPONIN-I 1.103 ng/mL (0.000-0.060)
--- NOTE | 2019-11-24 01:19 | NUR ---
ASSIST PT TO RESTROOM x3. SHOWER GIVEN. NO COMPLAINTS OF PAIN AT THIS TIME. PT ENCOURAGED TO CALL FOR HELP WHEN NEEDED. CALL LIGHT WITH IN REACH AND BED IS IN LOWEST POSITION. WILL CONTINUE TO MONITOR.
--- NOTE | 2019-11-24 02:11 | NUR ---
I have reviewed this patient and I concur with the Shift Assessment completed by the Licensed Practical Nurse today this shift.
[2019-11-24 02:56] LABS: BASOPHILS 0 % (0-2); EOSINOPHILS 0 % (0-7); HEMATOCRIT 36.4 % (36.0-48.0); HEMOGLOBIN 11.5 g/dL (12-16); IMMATURE GRANULOCYTES 0.1 % (0-5); MCH 28.4 pg (26.0-34.0); MCHC 31.6 g/dL (31.0-37.0); MCV 89.9 fL (80.0-100.0); MEAN PLATELET VOLUME 10.9 fL (7.4-10.4); MONOCYTES 3.4 % (2-11); NEUTROPHILS 88.5 % (40-80); PLATELET COUNT 237 10x3/uL (130-400); RBC 4.05 10x6/uL (4.00-5.40); RDW 13.7 % (11.5-14.5); WBC 7.6 10x3/uL (4.8-10.8)
[2019-11-24 03:26] LABS: ALBUMIN 2.9 g/dL (3.4-5.0); ALKALINE PHOSPHATASE 40 U/L (30-120); ALT (SGPT) 13 U/L (10-68); BILIRUBIN - TOTAL 0.27 mg/dL (0.2-1.3); CALC OSMOLALITY 284 mosm/kg (275-300); CALCIUM 8.7 mg/dL (8.5-10.1); CARBON DIOXIDE 29.1 mmol/L (21.0-32.0); CHLORIDE - SERUM 108 mmol/L (98-107); CKMB 4.3 U/L (0.0-3.6); CREATINE KINASE 132 UL (21-215); CREATININE - SERUM 0.8 mg/dL (0.6-1.3); GLUCOSE 160 mg/dL (74-106); POTASSIUM - SERUM 4.3 mmol/L (3.5-5.1); PROTEIN - SERUM 6.7 g/dL (6.4-8.2); SODIUM 141 mmol/L (136-145); UREA NITROGEN 15 mg/dL (7-18); eGFR NON AFRICAN AMERICAN 72 mL/min (90-120)
[2019-11-24 03:27] LABS: TROPONIN-I 0.802 ng/mL (0.000-0.060)
[2019-11-24 06:34] VITALS: BP 151/66
--- NOTE | 2019-11-24 08:02 | NUR ---
ASSISTED TO BATHROOM X1 ASSIST WITH UNSTEADY GAIT. VOID X1. ASSISTED BACK TO BED WITH WALKER. DENIES FURTHER NEEDS OR PAIN AT THIS TIME. CALL LIGHT WITHIN REACH. BED IN LOWEST POSITION. WILL CONTINUE TO MONITOR.
[2019-11-24 08:33] VITALS: BP 134/56
--- NOTE | 2019-11-24 10:02 | NUR ---
Rehab Note- Acute Inpatient Rehab prescreen order received. The patient has [employer] insurance and will require a PreAuth prior to an inpatient acute rehab stay. She has a pending PT Eval and will need an OT Eval ordered that will be needed for the PreAuth process. Will follow at this time. Thank you for this referral! Mary Wall RN Clinical Liaison, [facility] Rehab
--- NOTE | 2019-11-24 11:07 | NUR ---
I have reviewed this patient and I concur with the Shift Assessment completed by the Licensed Practical Nurse today this shift.
[2019-11-24 11:37] VITALS: BP 137/54
[2019-11-24 13:58] VITALS: Ht 152.4 cm; Wt 57.8 kg
[2019-11-24 15:39] VITALS: BP 139/60
--- NOTE | 2019-11-24 19:00 | NUR ---
REPORT RECEIVED, WILL CONTINUE POC. PATIENT IS AAOX4, LYING IN SEMI-FOWLERS POSITION. NO S/S OF DISTRESS OBSERVED, RR EVEN AND UNLABORED ON 3L O2 VIA NC. PIV TO LT FA, PATENT, SL, DRSG C/D/I. PATIENT DENIES NEEDS AT THIS TIME. CL IN REACH, BED LOCKED AND LOWERED. WILL CTM.
[2019-11-24 20:00] VITALS: BP 133/65
[2019-11-25] VITALS: BP 166/62
--- NOTE | 2019-11-25 01:40 | NUR ---
I have reviewed this patient and I concur with the Shift Assessment completed by the Licensed Practical Nurse today this shift.
[2019-11-25 04:00] VITALS: BP 160/73
--- NOTE | 2019-11-25 04:25 | NUR ---
ASSISTED PATIENT TO BATHROOM AND BACK TO BED X1 ASSIST. CL IN REACH, BED LOCKED AND LOWERED. WILL CTM.
[2019-11-25 10:59] VITALS: BP 212/100
--- NOTE | 2019-11-25 12:56 | NUR ---
I have reviewed this patient and I concur with the Shift Assessment completed by the Licensed Practical Nurse today this shift.
[2019-11-25 13:52] VITALS: BP 160/74
--- NOTE | 2019-11-25 16:48 | EC ---
PATIENT:DIANNA CRUZ DATE OF SERVICE: 11/23/19 SEX: F MEDICAL RECORD: [id number] DATE OF : [birth year] LOCATION:D.M2 D.210 AGE OF PATIENT: 84 ADMISSION DATE: 11/23/19 REFERRING PHYSICIAN: INTERPRETING PHYSICIAN: VAISHALI CAMARILLO MD ECHOCARDIOGRAM REPORT ECHO CHARGES 4 ECHO COMPLETE Date: 11/24/19 CLINICAL DIAGNOSIS: CHF ECHOCARDIOGRAPHIC MEASUREMENTS (adult normal given) AC root (d.<3.7cm) 2.8 cm LV Septum d (<1.2 cm> 1.2 cm Valve Excursion 0.7 cm LV Septum (systole) 1.5 cm Left Atria (s.<4.0cm> 2.6 cm LVPW d(<1.2cm) 1.3 cm RV (d.<2.3cm) 2.1 cm LVPW (sytole) 2.0 cm LV diastole(<5.6CM) 4.9 cm MV E-F(>70mm/sec) cm LV systole 2.9 cm LVOT Diameter 1.4 cm MV exc.(>10mm) cm Est.ejection fraction (50-75%) % DOPPLER: LVIT cm/sec A 141 cm/sec E 114 cm/sec LA cm/sec RVSP 44.4 mmHg LVOT 105 cm/sec AOP1/2T m/s Asc. Ao 494 cm/sec RVOT 90.0 cm/sec RA cm/sec PA 104 cm/sec AV Gradient Peak 98.0 mmHg AV Mean 67.0 mmHg AV Area 0.3 cm MV Gradient Peak 7.6 mmHg MV Mean 2.9 mmHg MV Area cm COMMENTS: Sales And Leasing Agent: 1 DEMARIO GARDNER Crossing Supervisor: 1 Dr. [place]ar[place] TAPE# PACS Pericardial Effusion N DATE OF SERVICE: FINDINGS: 1. Left ventricular size is within normal limits. Left ventricular systolic function is normal at 55% to 60%. 2. Left atrium is within normal limits. Right atrium and right ventricular chamber sizes are mildly dilated. 3. Valvular structures: Aortic valve demonstrates severe calcific aortic stenosis, valve area calculates to 0.3 cm-squared with a gradient of 98 mm across the valve. The remaining valvular structures have normal structure and ECHOCARDIOGRAM REPORT [id number] DIANNA CRUZ motion. 4. Doppler interrogation elsewise reveals mild mitral regurgitation, mild tricuspid regurgitation, no other valvular insufficiency or stenosis. Pulmonary systolic pressure is estimated at 44 mmHg. 5. No evidence of pericardial effusion or left ventricular thrombus. TRANSINT:[id number] Voice Confirmation ID: [id number] DOCUMENT ID: [id number] VAISHALI CAMARILLO MD at 1648 CC: [id number] DICTATION DATE: 11/25/19 0746 TECHNICAL TRANSLATOR: 11/25/19 0937 ADM IN [facility] [address] [id number]
--- NOTE | 2019-11-25 17:11 | MORECARE ---
CASE MANAGEMENT DISCHARGE SUMMARY PATIENT: DIANNA CRUZ UNIT: [id number] ADM DATE: 11/23/19 AGE: 84 : 34 SEX: F ROOM/BED: D.2105 AUTHOR: TONY GOMES PHYSICIAN: REFERRING PHYSICIAN: MIKYALA DOWNING MD DATE OF SERVICE: 11/25/19 Discharge Plan Patient Name: DIANNA CRUZ Facility: [facility]:[place] : 1935 Planned Disposition: Anticipated Discharge Date: Discharge Date: Expected LOS: Initial Reviewer: [id number] Initial Review Date: 11/25/2019 Generated: 11/25/19 6:11 pm Comments DCP- Discharge Planning Updated by [email or web address]: Carmita Villegas on 11/25/19 12:[address] PHYSICAL THERAPY EVAL COMPLETED. AWAIT OT EVALUATION. PATIENT'S B/P 212/100 TODAY. PULSE 113. PULMONARY RECOMMENDS CONTINUING PRESENT TREATMENT COURSE. IV STEROIDS, NASAL O2 AT 2/L. NO UPDRAFTS. PFTS NOT RECOMMENDED DUE TO SEVERE AORTIC STENOSIS. PULMONARY RECOMMENDS TRANSFER TO [facility] FOR F/U FOR SEVERE AORTIC STENOSIS. Patient Name: DIANNA CRUZ Page [phone] at 1711 All edits/amendments must be made on the electronic document DICTATION DATE: 11/25/191710 RADIATION ONCOLOGY NURSE: ELIZABETH 11/25/191710 RPT#: [id number] DC DATE: STATUS: ADM IN [facility] [address] [place] [address] END OF REPORT
--- NOTE | 2019-11-25 19:25 | NUR ---
REPORT RECEIVED, WILL CONTINUE POC. PATIENT IS AAOX4, ASSISTED TO BATHROOM AND BACK TO BED. NO S/S OF DISTRESS OBSERVED, RR EVEN AND UNLABORED ON 4L O2 VIA NC. PATIENT DENIES NEEDS AT THIS TIME. CL IN REACH, BED LOCKED AND LOWERED. AT BEDSIDE. WILL CTM.
[2019-11-25 20:00] VITALS: BP 136/59
[2019-11-26] VITALS: BP 122/56
--- NOTE | 2019-11-26 03:30 | NUR ---
I have reviewed this patient and I concur with the Shift Assessment completed by the Licensed Practical Nurse today this shift.
[2019-11-26 04:00] VITALS: BP 127/43
--- NOTE | 2019-11-26 07:39 | NUR ---
PT IS RESTING IN BED WITH EYES OPEN. RESPIRATIONS ARE EVEN AND UNLABORED. O2 VIA NC @ 4L. PT DENIES PRESENCE OF PAIN/N/V/DYSPNEA AT THIS TIME. PT IS AAO X 4. FAMILY IS AT BEDSIDE. PT ASSTED TO RESTROOM AND AMBULATES WITH MINIMAL ASSIST. PT ENCOURAGED TO TCDB. PT VERBALIZES UNDERSTANDING. BED IS IN THE LOWEST POSITION. CALL LIGHT AND BEDSIDE TABLE ARE WITHIN REACH. SIDE RAILS X 2. PT AND PT FAMILY DENY FURTHER NEEDS. WILL CONT TO MONITOR.
[2019-11-26 10:03] VITALS: BP 136/60
--- NOTE | 2019-11-26 10:43 | NUR ---
Nutrition Follow-up: Ate ~75% of breakfast this AM. Denies N/V currently but reports she experienced nausea yesterday and received Zofran. Also reports multiple BMs yesterday but none today. Diet: Cardiac PO intake: 63% avg x 4 meals No new wt; last wt: 127.4# (11/24) No new labs Meds noted: Solumedrol, Protonix, Zofran -Continue current diet as tolerated. -Need new wt; noted daily wts ordered. -RD following.
--- NOTE | 2019-11-26 11:42 | NUR ---
Rehab Note- Per IDT meeting looking at SNF placements. THank you for this referral! Mary Wall RN Clinical Liaison, [facility] Rehab
[2019-11-26 12:40] VITALS: BP 118/63
--- NOTE | 2019-11-26 15:24 | MORECARE ---
CASE MANAGEMENT DISCHARGE SUMMARY PATIENT: DIANNA CRUZ UNIT: [id number] ADM DATE: 11/23/19 AGE: 84 : 34 SEX: F ROOM/BED: D.2108 AUTHOR: TONY GOMES PHYSICIAN: REFERRING PHYSICIAN: MIKAYLA DOWNING MD DATE OF SERVICE: 11/26/19 Discharge Plan Patient Name: DIANNA CRUZ Facility: [facility]:[place] : 1935 Planned Disposition: Anticipated Discharge Date: Discharge Date: Expected LOS: Initial Reviewer: [id number] Initial Review Date: 11/25/2019 Generated: 11/26/19 4:24 pm Comments DCP- Discharge Planning Updated by [id number]: Miranda Teran on 11/26/19 2:[address] Patient Name: DIANNA CRUZ Admission Status: Elective Accout number: [id number] Admission Date: 11-23-2019 : 1935 Admission Diagnosis: Attending: MIKAYLA DOWNING Current LOS: 3 Anticipated DC Date: Planned Disposition: Primary Insurance: [employer] ADV Discharge Planning Comments: SPOKE WITH [facility] AND THEY STATE THEY ARE NOT IN NETWORK WITH HER INSURANCE COMPANY BUT WOULD ACCEPT IF PATIENT AGREED. I SPOKE WITH PATIENT AND SHE DOES NOT WANT TO GO IF NOT COVERED BY HER INSURANCE. NOTIFIED AND PLANS TO DC TO HOME. Cotton Chopper: Miranda Teran DCP- Discharge Planning Updated by [id number]: Carmita Villegas on 11/25/19 12:[address] PHYSICAL THERAPY EVAL COMPLETED. AWAIT OT EVALUATION. PATIENT'S B/P 212/100 TODAY. PULSE 113. PULMONARY RECOMMENDS CONTINUING PRESENT TREATMENT COURSE. IV STEROIDS, NASAL O2 AT 2/L. NO UPDRAFTS. PFTS NOT RECOMMENDED DUE TO SEVERE AORTIC STENOSIS. PULMONARY RECOMMENDS TRANSFER TO [facility] FOR F/U FOR SEVERE AORTIC STENOSIS. Last DP export: 11/25/19 4:11 p Patient Name: DIANNA CRUZ Page [id number] at 1524 All edits/amendments must be made on the electronic document DICTATION DATE: 11/26/19 1524 GARMENT SUPERVISOR: ELIZABETH 11/26/19 1524 RPT#: [id number] DC DATE: STATUS: ADM IN [facility] [address] [place] [address] END OF REPORT
--- NOTE | 2019-11-26 17:02 | MORECARE ---
CASE MANAGEMENT DISCHARGE SUMMARY PATIENT: DIANNA CRUZ UNIT: [id number] ADM DATE: 11/23/19 AGE: 84 : 34 SEX: F ROOM/BED: D.2107 AUTHOR: MIREYADOC PHYSICIAN: REFERRING PHYSICIAN: MIKAYLA DOWNING MD DATE OF SERVICE: 11/26/19 Discharge Plan Patient Name: DIANNA CRUZ Facility: [facility]:[place] : 1935 Planned Disposition: Anticipated Discharge Date: Discharge Date: Expected LOS: Initial Reviewer: [email or web address] Initial Review Date: 11/25/2019 Generated: 11/26/19 6:02 pm Comments DCP- Discharge Planning Updated by [email or web address]: Miranda Teran on 11/26/19 4:[address] Patient Name: DIANNA CRUZ Admission Status: Elective Accout number: [id number] Admission Date: 11-23-2019 : 1935 Admission Diagnosis: Attending: MIKAYLA DOWNING Current LOS: 3 Anticipated DC Date: Planned Disposition: Primary Insurance: [employer] ADV Discharge Planning Comments: CM MET WITH PATIENT AND HER DAUGHTER SCOTT. PATIENT WOULD LIKE [facility] AND [facility] FOR O2 NEEDS. I AM FAXING REFERRAL TO [facility] AND WAITING ON WALK TEST IN ORDER TO FAX TO [facility]. CM TO FOLLOW AND ASSIST. IMM AND ELLIS SIGNED. Tabber: Miranda Teran DCP- Discharge Planning Updated by [id number]: Miranda Teran on 11/26/19 2:[address] Patient Name: DIANNA CRUZ Admission Status: Elective Accout number: [id number] Admission Date: 11-23-2019 : 1935 Admission Diagnosis: Attending: MIKAYLA DOWNING Current LOS: 3 Anticipated DC Date: Planned Disposition: Primary Insurance: [employer] ADV Discharge Planning Comments: SPOKE WITH [facility] AND THEY STATE THEY ARE NOT IN NETWORK WITH HER INSURANCE COMPANY BUT WOULD ACCEPT IF PATIENT AGREED. I SPOKE WITH PATIENT AND SHE DOES NOT WANT TO GO IF NOT COVERED BY HER INSURANCE. MD NOTIFIED AND PLANS TO DC TO HOME. Tabber: Miranda Teran DCP- Discharge Planning Updated by [email or web address]: Carmita Villegas on 11/25/19 12:[address] PHYSICAL THERAPY EVAL COMPLETED. AWAIT OT EVALUATION. PATIENT'S B/P 212/100 TODAY. PULSE 113. PULMONARY RECOMMENDS CONTINUING PRESENT TREATMENT COURSE. IV STEROIDS, NASAL O2 AT 2/L. NO UPDRAFTS. PFTS NOT RECOMMENDED DUE TO SEVERE AORTIC STENOSIS. PULMONARY RECOMMENDS TRANSFER TO [facility] FOR F/U FOR SEVERE AORTIC STENOSIS. Last DP export: 11/26/19 2:24 p Patient Name: DIANNA CRUZ Page [phone] at 1702 All edits/amendments must be made on the electronic document DICTATION DATE: 11/26/191701 SCHOOL CROSSING GUARD: ELIZABETH 11/26/191701 RPT#: [id number] DC DATE: STATUS: ADM IN [facility] [address] [place] [address] END OF REPORT
--- NOTE | 2019-11-26 17:11 | MORECARE ---
CASE MANAGEMENT DISCHARGE SUMMARY PATIENT: DIANNA CRUZ UNIT: [id number] ADM DATE: 11/23/19 AGE: 84 : 34 SEX: F ROOM/BED: D.7745 AUTHOR: MIREYADOC PHYSICIAN: REFERRING PHYSICIAN: MIKAYLA DOWNING MD DATE OF SERVICE: 11/26/19 Discharge Plan Patient Name: DIANNA CRUZ Facility: [facility]:[place] : 1935 Planned Disposition: Anticipated Discharge Date: Discharge Date: Expected LOS: Initial Reviewer: [id number] Initial Review Date: 11/25/2019 Generated: 11/26/19 6:10 pm Comments DCP- Discharge Planning Updated by [id number]: Miranda Teran on 11/26/19 4:[address] Patient Name: DIANNA CRUZ Admission Status: Elective Accout number: [id number] Admission Date: 11-23-2019 : 1935 Admission Diagnosis: Attending: MIKAYLA DOWNING Current LOS: 3 Anticipated DC Date: Planned Disposition: Primary Insurance: [employer]ARE ADV Discharge Planning Comments: CM MET WITH PATIENT AND HER DAUGHTER SCOTT. [facility]IENT [facility]. I AM FAXING REFERRAL TO [facility] AND WAITING ON WALK TEST IN ORDER TO FAX TO [facility]. CM TO FOLLOW AND ASSIST. IMM AND ELLIS SIGNED. Analyst Geochemical Prospecting: Miranda Teran Appended by Miranda Teran on 11/26/2019 17:03 SPOT BILLING CLERK: WITH IT BEING THIS LATE IN THE DAY I ANTICIPATE DC WILL BE TOMORROW. DCP- Discharge Planning Updated by [email or web address]: Miranda Teran on 11/26/19 2:[address] Patient Name: DIANNA CRUZ Admission Status: Elective Accout number: [id number] Admission Date: 11-23-2019 : 1935 Admission Diagnosis: Attending: MIKAYLA DOWNING Current LOS: 3 Anticipated DC Date: Planned Disposition: Primary Insurance: WELL[employer] MEDICARE ADV Discharge Planning Comments: SPOKE WITH [facility] AND THEY STATE THEY ARE NOT IN NETWORK WITH HER INSURANCE COMPANY BUT WOULD ACCEPT IF PATIENT AGREED. I SPOKE WITH PATIENT AND SHE DOES NOT WANT TO GO IF NOT COVERED BY HER INSURANCE. NOTIFIED AND PLANS TO DC TO HOME. Analyst Geochemical Prospecting: Miranda Teran DCP- Discharge Planning Updated by [id number]: Carmita Villegas on 11/25/19 12:[address] PHYSICAL THERAPY EVAL COMPLETED. AWAIT OT EVALUATION. PATIENT'S B/P 212/100 TODAY. PULSE 113. PULMONARY RECOMMENDS CONTINUING PRESENT TREATMENT COURSE. IV STEROIDS, NASAL O2 AT 2/L. NO UPDRAFTS. PFTS NOT RECOMMENDED DUE TO SEVERE AORTIC STENOSIS. PULMONARY RECOMMENDS TRANSFER TO [facility] FOR F/U FOR SEVERE AORTIC STENOSIS. External Providers [facility] Next Contact Date: Service Request Date: Service Type: Resolution: Reviewer: Comments: Coverage Notice Reviewer: [id number] Guero Teran Notice Issued Date-Time: 11/26/2019 17:01 Notice Type: IM Discharge Notice Notice Delivered To: Family Member Relationship to Patient: Welding Technician Name: DAUGHTER Delivery Method: HAND - Hand Delivered Lissett Days: Prior Verbal Notification: Recipient Understood Notice: Yes Recipient Signature: Yes Med Rec Note Co-signed by Attending: Coverage Notice Comment: Reviewer: [id number] Guero Teran Notice Issued Date-Time: 11/26/2019 17:01 Notice Type: Patient Choice Letter Notice Delivered To: Family Member Relationship to Patient: Welding Technician Name: DAUGHTER Delivery Method: HAND - Hand Delivered Lissett Days: Prior Verbal Notification: Recipient Understood Notice: Yes Recipient Signature: Yes Med Rec Note Co-signed by Attending: Coverage Notice Comment: [facility] Last DP export: 11/26/19 4:02 p Patient Name: DIANNA CRUZ Page 10438 at 1711 All edits/amendments must be made on the electronic document DICTATION DATE: 11/26/191709 ATTENDANT CHILD ACTIVITY: ELIZABETH 11/26/191709 RPT#: [id number] DC DATE: STATUS: ADM IN [facility] [address] [facility] [place] [address] END OF REPORT
--- NOTE | 2019-11-26 17:18 | MORECARE ---
CASE MANAGEMENT DISCHARGE SUMMARY PATIENT: DIANNA CRUZ UNIT: [id number] ADM DATE: 11/23/19 AGE: 84 : 34 SEX: F ROOM/BED: D.8811 AUTHOR: MIREYADOC PHYSICIAN: REFERRING PHYSICIAN: MIKAYLA DOWNING MD DATE OF SERVICE: 11/26/19 Discharge Plan Patient Name: DIANNA CRUZ Facility: [facility]:[place] : 1935 Planned Disposition: Anticipated Discharge Date: Discharge Date: Expected LOS: Initial Reviewer: [email or web address] Initial Review Date: 11/25/2019 Generated: 11/26/19 6:18 pm Comments DCP- Discharge Planning Updated by [id number]: Miranda Teran on 11/26/19 4:[address] Patient Name: DIANNA CRUZ Admission Status: Elective Accout number: [id number] Admission Date: 11-23-2019 : 1935 Admission Diagnosis: Attending: MIKAYLA DOWNING Current LOS: 3 Anticipated DC Date: Planned Disposition: Primary Insurance: WE[employer] MEDICARE ADV Discharge Planning Comments: CM MET WITH PATIENT AND HER DAUGHTER SCOTT. [facility]IENT W[facility] LIKE [facility]. I AM FAXING REFERRAL TO [facility] AND WAITING ON WALK TEST IN ORDER TO FAX TO [facility]. CM TO FOLLOW AND ASSIST. IMM AND ELLIS SIGNED. Interior Design Professional: Miranda Teran Appended by Miranda Teran on 11/26/2019 17:03 AUTOMOTIVE PARTS COUNTER PERSON: WITH IT BEING THIS LATE IN THE DAY I ANTICIPATE DC WILL BE TOMORROW. DCP- Discharge Planning Updated by [id number]: Miranda Teran on 11/26/19 2:[address] Patient Name: DIANNA CRUZ Admission Status: Elective Accout number: [id number] Admission Date: 11-23-2019 : 1935 Admission Diagnosis: Attending: MIKAYLA DOWNING Current LOS: 3 Anticipated DC Date: Planned Disposition: Primary Insurance: WE[employer] MEDICARE ADV Discharge Planning Comments: SPOKE WITH [facility] AND THEY STATE THEY ARE NOT IN NETWORK WITH HER INSURANCE COMPANY BUT WOULD ACCEPT IF PATIENT AGREED. I SPOKE WITH PATIENT AND SHE DOES NOT WANT TO GO IF NOT COVERED BY HER INSURANCE. NOTIFIED AND PLANS TO DC TO HOME. Interior Design Professional: Miranda Parul DCP- Discharge Planning Updated by [email or web address]: Carmita Villegas on 11/25/19 12:[address] PHYSICAL THERAPY EVAL COMPLETED. AWAIT OT EVALUATION. PATIENT'S B/P 212/100 TODAY. PULSE 113. PULMONARY RECOMMENDS CONTINUING PRESENT TREATMENT COURSE. IV STEROIDS, NASAL O2 AT 2/L. NO UPDRAFTS. PFTS NOT RECOMMENDED DUE TO SEVERE AORTIC STENOSIS. PULMONARY RECOMMENDS TRANSFER TO [facility] FOR F/U FOR SEVERE AORTIC STENOSIS. External Providers External Provider: [facility] Next Contact Date: Service Request Date: Service Type: Resolution: Reviewer: Comments: Coverage Notice Reviewer: [id number] Guero Teran Notice Issued Date-Time: 11/26/2019 17:01 Notice Type: IM Discharge Notice Notice Delivered To: Family Member Relationship to Patient: Care Management Coordinator Name: DAUGHTER Delivery Method: HAND - Hand Delivered Lissett Days: Prior Verbal Notification: Recipient Understood Notice: Yes Recipient Signature: Yes Med Rec Note Co-signed by Attending: Coverage Notice Comment: Reviewer: [id number] Guero Teran Notice Issued Date-Time: 11/26/2019 17:01 Notice Type: Patient Choice Letter Notice Delivered To: Family Member Relationship to Patient: Care Management Coordinator Name: DAUGHTER Delivery Method: HAND - Hand Delivered Lissett Days: Prior Verbal Notification: Recipient Understood Notice: Yes Recipient Signature: Yes Med Rec Note Co-signed by Attending: Coverage Notice Comment: [facility] Last DP export: 11/26/19 4:11 p Patient Name: DIANNA CRUZ Page 84368 at 1718 All edits/amendments must be made on the electronic document DICTATION DATE: 11/26/191717 WEIGHT INSPECTOR: ELIZABETH 11/26/191717 RPT#: [id number] DC DATE: STATUS: ADM IN [facility] [address] [place] [address] END OF REPORT
[2019-11-26 18:09] VITALS: BP 152/96
--- NOTE | 2019-11-26 19:20 | NUR ---
REPORT RECEIVED, WILL CONTINUE POC. PATIENT IS AAOX4, UP WITH WALKER, STAND BY ASSIST. NO S/S OF DISTRESS OBSERVED, RR EVEN AND UNLABORED ON 4L O2 VIA NC. PIV TO LT FA, PATENT, SL, DRSG C/D/I. ASSISTED PATIENT TO BATHROOM AND BACK TO BED. PATIENT DENIES FURTHER NEEDS AT THIS TIME. CL IN REACH, BED LOCKED AND LOWERED. SRINIVAS ALARM ON. WILL CTM.
[2019-11-26 20:30] VITALS: BP 151/69
[2019-11-27 00:30] VITALS: BP 148/52
[2019-11-27 04:30] VITALS: BP 126/58
[2019-11-27 08:21] VITALS: BP 172/73
--- NOTE | 2019-11-27 08:29 | NUR ---
ROUNDING DONE, ASSSITED PATIENT TO RESTROOM. SRINIVAS MAT ALARM ON AND IN USE. ASSISTED PATIENT TO RESTROOM WITH WALKER, VOIDS EASILY. ON 4L PER NC. ON HEART MONITOR SHOWING SR, HR 79. ON EP, LABS WNL. LEFT FA SEEN WITH SALINE LOCK. DNR CODE STATUS. WILL CONTINUE TO MONITOR AND ASSESS FOR NEEDS. CL IN USE.
[2019-11-27 11:22] VITALS: BP 160/62
--- NOTE | 2019-11-27 13:20 | NUR ---
WENT TO HAVE PATIENT SIGN TRANSFER PAPERWORK FOR [facility] AND PATIENT STATES, "CAN'T IT WAIT TILL FRIDAY?". STATES THAT SHE NEEDS TO TALK TO HER KIDS. I EXPLAINED TO HER THAT WE CAN NOT GUARENTEE A BED THEN. SHE HAD ME DIAL THE PHONE FOR HER.
--- NOTE | 2019-11-27 13:39 | NUR ---
ASSISTED PATIENT BACK FROM RESTROOM. STATES THAT "I NEED PAPER FIXED SO I CAN GO TO [facility]". WHEN QUESTIONED ABOUT WHAT PAPERS, SHE STATES "MY HOUSE AND BANK STUFF". AWAITING HER KIDS TO COME UP HERE BEFORE SHE SIGNS.
--- NOTE | 2019-11-27 13:56 | MORECARE ---
CASE MANAGEMENT DISCHARGE SUMMARY PATIENT: DIANNA CRUZ UNIT: [id number] ADM DATE: 11/23/19 AGE: 84 : 34 SEX: F ROOM/BED: D.2926 AUTHOR: MIREYADOC PHYSICIAN: REFERRING PHYSICIAN: MIKAYLA DOWNING MD DATE OF SERVICE: 11/27/19 Discharge Plan Patient Name: DIANNA CRUZ Facility: [facility]:[place] : 1935 Planned Disposition: Anticipated Discharge Date: Discharge Date: Expected LOS: Initial Reviewer: [id number] Initial Review Date: 11/25/2019 Generated: 11/27/19 2:55 pm Comments DCP- Discharge Planning Updated by [email or web address]: Miranda Teran on 11/26/19 4:[address] Patient Name: DIANNA CRUZ Admission Status: Elective Accout number: [id number] Admission Date: 11-23-2019 : 1935 Admission Diagnosis: Attending: MIKAYLA DOWNING Current LOS: 3 Anticipated DC Date: Planned Disposition: Primary Insurance: WE[employer] MEDICARE ADV Discharge Planning Comments: CM MET WITH PATIENT AND HER DAUGHTER SCOTT. [facility]IENT [facility] NEED[facility]. I AM FA[facility]ING REFERRAL TO [facility] AND WAITING ON WALK TEST IN ORDER TO FAX TO [facility]. CM TO FOLLOW AND ASSIST. IMM AND ELLIS SIGNED. Bevel Mill Operator: Miranda Teran Appended by Miranda Teran on 11/26/2019 17:03 RESIDENTIAL SUPERVISOR: WITH IT BEING THIS LATE IN THE DAY I ANTICIPATE DC WILL BE TOMORROW. DCP- Discharge Planning Updated by [email or web address]: Miranda Teran on 11/26/19 2:[address] Patient Name: DIANNA CRUZ Admission Status: Elective Accout number: [id number] Admission Date: 11-23-2019 : 1935 Admission Diagnosis: Attending: MIKAYLA DOWNING Current LOS: 3 Anticipated DC Date: Planned Disposition: Primary Insurance: WE[employer] MEDICARE ADV Discharge Planning Comments: SPOKE WITH [facility] AND THEY STATE THEY ARE NOT IN NETWORK WITH HER INSURANCE COMPANY BUT WOULD ACCEPT IF PATIENT AGREED. I SPOKE WITH PATIENT AND SHE DOES NOT WANT TO GO IF NOT COVERED BY HER INSURANCE. NOTIFIED AND PLANS TO DC TO HOME. Bevel Mill Operator: Miranda Teran DCP- Discharge Planning Updated by [id number]: Carmita Villegas on 11/25/19 12:[address] PHYSICAL THERAPY EVAL COMPLETED. AWAIT OT EVALUATION. PATIENT'S B/P 212/100 TODAY. PULSE 113. PULMONARY RECOMMENDS CONTINUING PRESENT TREATMENT COURSE. IV STEROIDS, NASAL O2 AT 2/L. NO UPDRAFTS. PFTS NOT RECOMMENDED DUE TO SEVERE AORTIC STENOSIS. PULMONARY RECOMMENDS TRANSFER TO [facility] FOR F/U FOR SEVERE AORTIC STENOSIS. Coverage Notice Reviewer: [id number] Guero Teran Notice Issued Date-Time: 11/26/2019 17:01 Notice Type: IM Discharge Notice Notice Delivered To: Family Member Relationship to Patient: Dynamiter Name: DAUGHTER Delivery Method: HAND - Hand Delivered Lissett Days: Prior Verbal Notification: Recipient Understood Notice: Yes Recipient Signature: Yes Med Rec Note Co-signed by Attending: Coverage Notice Comment: Reviewer: [id number] Guero Teran Notice Issued Date-Time: 11/26/2019 17:01 Notice Type: Patient Choice Letter Notice Delivered To: Family Member Relationship to Patient: Dynamiter Name: DAUGHTER Delivery Method: HAND - Hand Delivered Lissett Days: Prior Verbal Notification: Recipient Understood Notice: Yes Recipient Signature: Yes Med Rec Note Co-signed by Attending: Coverage Notice Comment: [facility] Last DP export: 11/26/19 4:18 p Patient Name: DIANNA CRUZ Page 88855 at 1356 All edits/amendments must be made on the electronic document DICTATION DATE: 11/27/19 1355 MATE FOURTH: ELIZABETH 11/27/19 1355 RPT#: [id number] DC DATE: STATUS: ADM IN [facility] [address] [facility] [place] [address] END OF REPORT
--- NOTE | 2019-11-27 14:35 | NUR ---
REPORT CALLED TO LACY CASTILLO RN AT [facility] IN [place]. FAMILY IS HERE AND PATIENT SIGNED THE TRANSFER FORM. AWAITING HOUSE SUP TO SIGN SO [facility] CAN BE CALLED.
--- NOTE | 2019-11-27 14:44 | NUR ---
I CALLED [employer] [facility] AND THEY SAID ABOUT 30-45 MIN.
--- NOTE | 2019-11-27 15:25 | NUR ---
[facility] HERE TO GET PATIENT. HEART MONITOR TURNED IN. I CALLED LACY CASTILLO RN AND TOLD HER THEY WHERE ON THE WAY. SALINE LOCK LEFT IN.
--- NOTE | 2019-11-27 15:56 | MORECARE ---
CASE MANAGEMENT DISCHARGE SUMMARY PATIENT: DIANNA CRUZ UNIT: [id number] ADM DATE: 11/23/19 AGE: 84 : 34 SEX: F ROOM/BED: D.2100 AUTHOR: MIREYADOC PHYSICIAN: REFERRING PHYSICIAN: MIKAYLA DOWNING MD DATE OF SERVICE: 11/27/19 Discharge Plan Patient Name: DIANNA CRUZ Facility: [facility]:[place] : 1935 Planned Disposition: Anticipated Discharge Date: Discharge Date: 11/27/2019 Expected LOS: Initial Reviewer: [id number] Initial Review Date: 11/25/2019 Generated: 11/27/19 4:55 pm Comments DCP- Discharge Planning Updated by [id number]: Miranda Teran on 11/26/19 4:[address] Patient Name: DIANNA CRUZ Admission Status: Elective Accout number: [id number] Admission Date: 11-23-2019 : 1935 Admission Diagnosis: Attending: MIKAYLA DOWNING Current LOS: 3 Anticipated DC Date: Planned Disposition: Primary Insurance: WE[employer] MEDICARE ADV Discharge Planning Comments: CM MET WITH PATIENT AND HER DAUGHTER SCOTT. [facility]IENT W[facility] LIKE [facility] NEED[facility]. I AM FAXING REFERRAL TO [facility] AND WAITING ON WALK TEST IN ORDER TO FAX TO [facility]. CM TO FOLLOW AND ASSIST. IMM AND ELLIS SIGNED. Used Car Make Ready Mechanic: Miranda Teran Appended by Miranda Teran on 11/26/2019 17:03 HELPDESK MANAGER: WITH IT BEING THIS LATE IN THE DAY I ANTICIPATE DC WILL BE TOMORROW. DCP- Discharge Planning Updated by [id number]: Miranda Teran on 11/26/19 2:[address] Patient Name: DIANNA CRUZ Admission Status: Elective Accout number: [id number] Admission Date: 11-23-2019 : 1935 Admission Diagnosis: Attending: MIKAYLA DOWNING Current LOS: 3 Anticipated DC Date: Planned Disposition: Primary Insurance: WE[employer] MEDICARE ADV Discharge Planning Comments: SPOKE WITH [facility] AND THEY STATE THEY ARE NOT IN NETWORK WITH HER INSURANCE COMPANY BUT WOULD ACCEPT IF PATIENT AGREED. I SPOKE WITH PATIENT AND SHE DOES NOT WANT TO GO IF NOT COVERED BY HER INSURANCE. NOTIFIED AND PLANS TO DC TO HOME. Used Car Make Ready Mechanic: Miranda Teran DCP- Discharge Planning Updated by [email or web address]: Carmitacharles Villegas on 11/25/19 12:[address] PHYSICAL THERAPY EVAL COMPLETED. AWAIT OT EVALUATION. PATIENT'S B/P 212/100 TODAY. PULSE 113. PULMONARY RECOMMENDS CONTINUING PRESENT TREATMENT COURSE. IV STEROIDS, NASAL O2 AT 2/L. NO UPDRAFTS. PFTS NOT RECOMMENDED DUE TO SEVERE AORTIC STENOSIS. PULMONARY RECOMMENDS TRANSFER TO [facility] FOR F/U FOR SEVERE AORTIC STENOSIS. Coverage Notice Reviewer: [id number] Guero Teran Notice Issued Date-Time: 11/26/2019 17:01 Notice Type: IM Discharge Notice Notice Delivered To: Family Member Relationship to Patient: Painter Helper Spray Name: DAUGHTER Delivery Method: HAND - Hand Delivered Lissett Days: Prior Verbal Notification: Recipient Understood Notice: Yes Recipient Signature: Yes Med Rec Note Co-signed by Attending: Coverage Notice Comment: Reviewer: [id number] Guero Teran Notice Issued Date-Time: 11/26/2019 17:01 Notice Type: Patient Choice Letter Notice Delivered To: Family Member Relationship to Patient: Painter Helper Spray Name: DAUGHTER Delivery Method: HAND - Hand Delivered Lissett Days: Prior Verbal Notification: Recipient Understood Notice: Yes Recipient Signature: Yes Med Rec Note Co-signed by Attending: Coverage Notice Comment: [facility] Last DP export: 11/27/19 12:56 p Patient Name: DIANNA CRUZ Page 81561 at 1556 All edits/amendments must be made on the electronic document DICTATION DATE: 11/27/19 1555 TERMINAL OPERATIONS SUPERVISOR: ELIZABETH 11/27/19 1555 RPT#: [id number] DC DATE:11/27/19 STATUS: DIS IN [facility] [address] [place] [address] END OF REPORT
--- NOTE | 2019-11-27 16:04 | MORECARE ---
CASE MANAGEMENT DISCHARGE SUMMARY PATIENT: DIANNA CRUZ UNIT: [id number] ADM DATE: 11/23/19 AGE: 84 : 34 SEX: F ROOM/BED: D.2100 AUTHOR: MIREYADOC PHYSICIAN: REFERRING PHYSICIAN: MIKAYLA DOWNING MD DATE OF SERVICE: 11/27/19 Discharge Plan Patient Name: DIANNA CRUZ Facility: [facility]:[place] : 1935 Planned Disposition: Anticipated Discharge Date: Discharge Date: 11/27/2019 Expected LOS: Initial Reviewer: [id number] Initial Review Date: 11/25/2019 Generated: 11/27/19 5:03 pm Comments DCP- Discharge Planning Updated by [email or web address]: Miranda Teran on 11/27/19 2:[address] Patient Name: DIANNA CRUZ Admission Status: Elective Accout number: [id number] Admission Date: 11-23-2019 : 1935 Admission Diagnosis: Attending: MIKAYLA DOWNING Current LOS: 4 Anticipated DC Date: Planned Disposition: Primary Insurance: WELLCARE MEDICARE ADV Discharge Planning Comments: PATIENT TRANSFERED TO [facility]. FAMILY AT BEDSIDE. Asbestos Removal Worker: Miranda Teran DCP- Discharge Planning Updated by [id number]: Miranda Teran on 11/26/19 4:[address] Patient Name: DIANNA CRUZ Admission Status: Elective Accout number: [id number] Admission Date: 11-23-2019 : 1935 Admission Diagnosis: Attending: MIKAYLA DOWNING Current LOS: 3 Anticipated DC Date: Planned Disposition: Primary Insurance: WELL[employer] MEDICARE ADV Discharge Planning Comments: CM MET WITH PATIENT AND HER DAUGHTER SCOTT. [facility]. I [facility]ING REFERRAL TO [facility] AND WAITING ON WALK TEST IN ORDER TO FAX TO [facility]. CM TO FOLLOW AND ASSIST. IMM AND ELLIS SIGNED. Asbestos Removal Worker: Miranda Teran Appended by Miranda Teran on 11/26/2019 17:03 MONITORING COORDINATOR: WITH IT BEING THIS LATE IN THE DAY I ANTICIPATE DC WILL BE TOMORROW. DCP- Discharge Planning Updated by [id number]: Miranda Teran on 11/26/19 2:[address] Patient Name: DIANNA CRUZ Admission Status: Elective Accout number: [id number] Admission Date: 11-23-2019 : 1935 Admission Diagnosis: Attending: MIKAYLA DOWNING Current LOS: 3 Anticipated DC Date: Planned Disposition: Primary Insurance: WE[employer]ARE MEDICARE ADV Discharge Planning Comments: SPOKE WITH [facility] AND THEY STATE THEY ARE NOT IN NETWORK WITH HER INSURANCE COMPANY BUT WOULD ACCEPT IF PATIENT AGREED. I SPOKE WITH PATIENT AND SHE DOES NOT WANT TO GO IF NOT COVERED BY HER INSURANCE. NOTIFIED AND PLANS TO DC TO HOME. Asbestos Removal Worker: Miranda Teran DCP- Discharge Planning Updated by [email or web address]: Carmita Villegas on 11/25/19 12:[address] PHYSICAL THERAPY EVAL COMPLETED. AWAIT OT EVALUATION. PATIENT'S B/P 212/100 TODAY. PULSE 113. PULMONARY RECOMMENDS CONTINUING PRESENT TREATMENT COURSE. IV STEROIDS, NASAL O2 AT 2/L. NO UPDRAFTS. PFTS NOT RECOMMENDED DUE TO SEVERE AORTIC STENOSIS. PULMONARY RECOMMENDS TRANSFER TO [facility] FOR F/U FOR SEVERE AORTIC STENOSIS. Coverage Notice Reviewer: [id number] Guero Teran Notice Issued Date-Time: 11/26/2019 17:01 Notice Type: IM Discharge Notice Notice Delivered To: Family Member Relationship to Patient: Candy Cutter Hand Name: DAUGHTER Delivery Method: HAND - Hand Delivered Lissett Days: Prior Verbal Notification: Recipient Understood Notice: Yes Recipient Signature: Yes Med Rec Note Co-signed by Attending: Coverage Notice Comment: Reviewer: [id number] Guero Teran Notice Issued Date-Time: 11/26/2019 17:01 Notice Type: Patient Choice Letter Notice Delivered To: Family Member Relationship to Patient: Candy Cutter Hand Name: DAUGHTER Delivery Method: HAND - Hand Delivered Lissett Days: Prior Verbal Notification: Recipient Understood Notice: Yes Recipient Signature: Yes Med Rec Note Co-signed by Attending: Coverage Notice Comment: [facility] Last DP export: 11/27/19 2:56 p Patient Name: DIANNA CRZU Page 87722 at 1604 All edits/amendments must be made on the electronic document DICTATION DATE: 11/27/19 1603 TRANSFER STATION ATTENDANT: ELIZABETH 11/27/19 160 RPT#: [id number] DC DATE:11/27/19 STATUS: DIS IN [facility] [address] [place] [address] END OF REPORT
--- NOTE | 2019-11-29 08:58 | MORECARE ---
CASE MANAGEMENT DISCHARGE SUMMARY PATIENT: DIANNA CRUZ UNIT: [id number] ADM DATE: 11/23/19 AGE: 84 : 33 SEX: F ROOM/BED: D.3237 AUTHOR: MIREYADOC PHYSICIAN: REFERRING PHYSICIAN: MIKAYLA DOWNING MD DATE OF SERVICE: 11/29/19 Discharge Plan Patient Name: DIANNA CRUZ Facility: [facility]:[place] : 1935 Planned Disposition: Acute Care Hospital Anticipated Discharge Date: 11/27/19 Discharge Date: 11/27/2019 Expected LOS: 4 Initial Reviewer: [email or web address] Initial Review Date: 11/25/2019 Generated: 11/29/19 9:58 am Comments DCP- Discharge Planning Updated by [email or web address]: Miranda Teran on 11/27/19 2:[address] Patient Name: DIANNA CRUZ Admission Status: Elective Accout number: [id number] Admission Date: 11-23-2019 : 1935 Admission Diagnosis: Attending: MIKAYLA DOWNING Current LOS: 4 Anticipated DC Date: Planned Disposition: Primary Insurance: [employer] ADV Discharge Planning Comments: PATIENT TRANSFERED TO [facility]. FAMILY AT BEDSIDE. Sr Community Manager: Miranda Teran DCP- Discharge Planning Updated by [email or web address]: Miranda Teran on 11/26/19 4:[address] Patient Name: DIANNA CRUZ Admission Status: Elective Accout number: [id number] Admission Date: 11-23-2019 : 1935 Admission Diagnosis: Attending: MIKAYLA DOWNING Current LOS: 3 Anticipated DC Date: Planned Disposition: Primary Insurance: [employer] ADV Discharge Planning Comments: CM MET WITH PATIENT AND HER DAUGHTER SCOTT. PATIENT WOULD LIKE [facility] FOR O2 NEEDS. I AM FAXING REFERRAL TO [facility] AND WAITING ON WALK TEST IN ORDER TO FAX TO [facility]. CM TO FOLLOW AND ASSIST. IMM AND [facility] SIGNED. Sr Community Manager: Miranda Teran Appended by Miranda Teran on 11/26/2019 17:03 CHIPS SCREEN TENDER: WITH IT BEING THIS LATE IN THE DAY I ANTICIPATE DC WILL BE TOMORROW. DCP- Discharge Planning Updated by [id number]: Miranda Parul on 11/26/19 2:[address] Patient Name: DIANNA CRUZ Admission Status: Elective Accout number: [id number] Admission Date: 11-23-2019 : 1935 Admission Diagnosis: Attending: MIKAYLA DOWNING Current LOS: 3 Anticipated DC Date: Planned Disposition: Primary Insurance: [employer] ADV Discharge Planning Comments: SPOKE WITH [facility] AND THEY STATE THEY ARE NOT IN NETWORK WITH HER INSURANCE COMPANY BUT WOULD ACCEPT IF PATIENT AGREED. I SPOKE WITH PATIENT AND SHE DOES NOT WANT TO GO IF NOT COVERED BY HER INSURANCE. MD NOTIFIED AND PLANS TO DC TO HOME. Sr Community Manager: Miranda Teran DCP- Discharge Planning Updated by [email or web address]: Carmita Villegas on 11/25/19 12:[address] PHYSICAL THERAPY EVAL COMPLETED. AWAIT OT EVALUATION. PATIENT'S B/P 212/100 TODAY. PULSE 113. PULMONARY RECOMMENDS CONTINUING PRESENT TREATMENT COURSE. IV STEROIDS, NASAL O2 AT 2/L. NO UPDRAFTS. PFTS NOT RECOMMENDED DUE TO SEVERE AORTIC STENOSIS. PULMONARY RECOMMENDS TRANSFER TO [facility] FOR F/U FOR SEVERE AORTIC STENOSIS. Coverage Notice Reviewer: [id number] Guero Teran Notice Issued Date-Time: 11/26/2019 17:01 Notice Type: IM Discharge Notice Notice Delivered To: Family Member Relationship to Patient: Electrical Systems Design Engineer Name: DAUGHTER Delivery Method: HAND - Hand Delivered [place] Days: Prior Verbal Notification: Recipient Understood Notice: Yes Recipient Signature: Yes Med Rec Note Co-signed by Attending: Coverage Notice Comment: Reviewer: [email or web address] Guero Teran Notice Issued Date-Time: 11/26/2019 17:01 Notice Type: Patient Choice Letter Notice Delivered To: Family Member Relationship to Patient: Electrical Systems Design Engineer Name: DAUGHTER Delivery Method: HAND - Hand Delivered [place]iss[place] Days: Prior Verbal Notification: Recipient Understood Notice: Yes Recipient Signature: Yes Med Rec Note Co-signed by Attending: Coverage Notice Comment: [facility] Last DP export: 11/27/19 3:04 p Patient Name: DIANNA CRUZ Page [id number] at 0858 All edits/amendments must be made on the electronic document DICTATION DATE: 11/29/19 0858 TAIL RIPPER: ELIZABETH 11/29/19 0858 RPT#: [id number] DC DATE:11/27/19 STATUS: DIS IN [facility] [address] [place] [address] END OF REPORT
== END 2019-11-27 15:30 | disposition short-term general hospital (02) | DRG 280 ==
LOC: D.ER 07:56 → D.M2 09:41
PROVIDERS: Family Medicine; ADMIT Internal Medicine Nephrology; ATTEND Internal Medicine Nephrology
DX: I08.0 Rheumatic disorders of both mitral and aortic valves (principal); J96.02 Acute respiratory failure with hypercapnia; I21.4 Non-ST elevation (NSTEMI) myocardial infarction; I50.31 Acute diastolic (congestive) heart failure; J96.01 Acute respiratory failure with hypoxia; I16.1 Hypertensive emergency; J44.1 Chronic obstructive pulmonary disease with (acute) exacerbation; I11.0 Hypertensive heart disease with heart failure; Z86.73 Personal history of transient ischemic attack (TIA), and cerebral infarction without residual deficits